=== PATIENT | female | born 1940 | race Caucasian/White ===

== ENCOUNTER 2019-11-17 22:01 | Emergency (ER) | payer OTHER, SELFPAY ==
[2019-11-17 22:12] VITALS: BP 152/82; PULSE 111; RESP 19; TEMP 36.4; O2SAT 96; BMI 39.9
[2019-11-17 23:22] VITALS: BP 107/53; PULSE 105; RESP 13; O2SAT 93
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
[2019-11-18 00:16] VITALS: BP 142/71; PULSE 103; RESP 20; O2SAT 99
[2019-11-18] MEDS: ACETAMINOPHEN 325 MG TABLET PO (00:16)
[2019-11-18] MEDS: HYDROCODONE/ACET 5/325 TABLET 1 TAB PO (00:16)
--- NOTE | 2019-11-18 00:51 | PC.NURSE ---
Pt has noticably crooked nose, able to still move air through nose. bruising appearing on inner left eye with swelling Denies visual changes.
[2019-11-18 01:39] VITALS: BP 148/82; PULSE 102; RESP 20; O2SAT 97
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
== END 2019-11-18 02:26 | disposition home or self-care (01) ==
PROVIDERS: Emergency Provider Emergency Medicine; Family Provider Internal Medicine; PCP Internal Medicine
DX: S02.2XXA Fracture of nasal bones, initial encounter for closed fracture (principal); S93.401A Sprain of unspecified ligament of right ankle, initial encounter; M54.2 Cervicalgia; Y04.2XXA Assault by strike against or bumped into by another person, initial encounter; Z79.01 Long term (current) use of anticoagulants; I48.20 Chronic atrial fibrillation, unspecified
CPT/HCPCS: 70450; 70486; 72125; 73610; 99283; 99284

== ENCOUNTER 2019-12-01 08:10 | Day surgery (SDC) | payer OTHER, SELFPAY ==
[2019-12-01] VITALS (12 sets, daily range): BP systolic 101–144; BP diastolic 73–90; PULSE 74–95; RESP 10–20; TEMP 36.1–36.7; O2SAT 92–98; BMI 38.9
--- NOTE | 2019-12-01 08:57 | PM.PREOP ---
Pre-operative Note Interval Note History & Physical reviewed/Exam performed by Physician: Yes Changes to H&P: No
[2019-12-01] MEDS: LACTATED RINGERS 1,000 ML 42 ML IV (09:21)
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
[2019-12-01] MEDS: OXYMETAZOLINE NASAL SPRAY 30 ML 2 SPRAYS NASAL (09:27)
[2019-12-01] MEDS: LIDOCAINE 4% SOLN 50 ML 20 ML TOP (10:20)
--- NOTE | 2019-12-01 10:24 | SUR.PHASEI ---
Patient coughed up large clot, oral suction done. Dr. Bear aware, Afrin applied per MD to anjali nares. Intermittent coughing improving and bleeding has slowed.
[2019-12-01] MEDS: fentaNYL 100 MCG/2 ML INJ IV ×2 (10:27→10:37)
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
--- NOTE | 2019-12-01 10:41 | SUR.PHASEI ---
IV leaking at hub. Hub tightened, IV appears to be working well.
[2019-12-01] MEDS: HYDROCODONE/ACET 5/325 TABLET 1 TAB PO (10:53)
--- NOTE | 2019-12-01 12:50 | SUR.PREOP ---
Late entry: Dr Bear asked if he wanted an INR, he did not.
== END 2019-12-01 11:54 | disposition home or self-care (01) ==
PROVIDERS: Family Provider Internal Medicine; PCP Internal Medicine; Referring Provider Otolaryngology; Visit Provider Otolaryngology
PROC: 0NSBXZZ Reposition Nasal Bone, External Approach (ICD-10-PCS; CPT 21315; principal; 2019-12-01 09:45)
DX: S02.2XXA Fracture of nasal bones, initial encounter for closed fracture (principal); Y04.0XXA Assault by unarmed brawl or fight, initial encounter; I48.91 Unspecified atrial fibrillation; G47.33 Obstructive sleep apnea (adult) (pediatric); N19 Unspecified kidney failure; F32.9 Major depressive disorder, single episode, unspecified
CPT/HCPCS: 21315; 93005; J3010

== ENCOUNTER 2020-03-26 12:55 | Emergency (ER) | payer OTHER, SELFPAY ==
[2020-03-26 13:00] VITALS: BP 117/61; PULSE 87; RESP 18; TEMP 37.1; O2SAT 95; BMI 39.9
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
[2020-03-26 13:30] VITALS: PULSE 78
--- NOTE | 2020-03-26 13:44 | ED_ITS ---
HPI - Extremity Injury (Upper) <PAMELA Cho - Last Filed: 03/26/20 14:57> General Chief Complaint: Extremity Injury, Upper Stated Complaint: fall on right shoulder, not sure if its broken Time Seen by Provider: 03/26/20 13:14 Source: patient Mode of arrival: Wheelchair Limitations: no limitations History of Present Illness HPI narrative: This is a 79-year-old female, former smoker, with chronic medical condition as AFib and takes warfarin daily presents to ED with family member with chief complaint of right anterior and lateral shoulder pain. Patient reports she fell on affected shoulder yesterday afternoon off lawn chair with all of her weight. Patient denies losing consciousness, hitting her head or other injuries. Patient reports she heard crack sounds during the fall. Patient reports intact sensation in her hand and finger. Patient is able to move all her fingers. Pain increases with movement of affected arm pain shoots down to forearm and to wrist. Patient had taken hydrocodone that she had this morning at 8:00 a.m. which helped pain slightly. Patient reports pain is 8/10 at this time. She has been using ice pack after the fall yesterday. Patient denies previous injury or surgery to right shoulder. Related Data Home Medications Medication Instructions Recorded Confirmed duloxetine 30 mg PO DAILY 12/01/19 12/01/19 duloxetine 60 mg PO DAILY 12/01/19 12/01/19 gabapentin 300 mg PO BID 12/01/19 12/01/19 hydrocodone-acetaminophen 1 tab PO BID 12/01/19 12/01/19 levothyroxine 25 mcg PO DAILY 12/01/19 12/01/19 metoprolol succinate 25 mg PO BID 12/01/19 12/01/19 warfarin 2.5 mg PO DAILY 12/01/19 12/01/19 Allergies Allergy/AdvReac Type Severity Reaction Status Date / Time No Known Drug Allergies Allergy Verified 12/01/19 10:10 Review of Systems <PAMELA Cho - Last Filed: 03/26/20 14:57> Review of Systems Narrative: General: Denies fever, chills, fatigue, malaise, sweats. HEENT: Denies sinus pain, ear pain, sore throat, difficulty swallowing, dizziness. Respiratory: Denies dyspnea, cough, wheezing, hemoptysis, sputum. Cardiovascular: Denies chest pain, palpitations, orthopnea, edema. Gastrointestinal: Denies nausea, vomiting, abdominal pain, diarrhea, constipation, melena. : Denies dysuria, frequency, incontinence, hematuria, urinary retention. Musculoskeletal: See HPI Skin: Denies rash, skin lesions, or other. Neurologic: Denies weakness, headache, numbness, change in speech, confusion, seizures, incoordination. Psychiatric: No concerning psychosocial issues. 12-point review of systems is negative except for those stated above. Patient History <PAMELA Cho - Last Filed: 03/26/20 14:57> Medical History Afib (Acute) Surgical History History of tonsillectomy (Acute) Hx of cholecystectomy (Acute) S/P appendectomy (Acute) Status post bilateral knee replacements (Acute) Social History household members: none Smoking Status: Former smoker Smoking Status: Former smoker alcohol intake frequency: a few times a week Substance Use Type: marijuana Exam <PAMELA Cho - Last Filed: 03/26/20 14:57> Narrative Exam Narrative: General appearance: well developed, well nourished, appears to be in pain and holding her right arm for support. Head: normocephalic, atraumatic, no scalp lesions, non-tender. ENT: Hearing grossly intact. Airway patent. Neck/Thyroid: neck supple, full range of motion, no visible masses or meningeal signs. No JVD, non-tender without lymphadenopathy. Skin: no suspicious rashes, lesions over visible areas. Warm and dry and appropriate color for ethnicity. Heart: no clubbing, no cyanosis, no edema. S1 and S2 normal. RRR w/o murmurs, clicks, or bruits. Lungs: Breathing even and unlabored. No stridor. No accessory muscles used. Able to speak in full sentences. Chest: normal shape and expansion. Abdomen: non-obese, non-distended. Neurologic: alert and oriented. Cognitive exam, [employer] and PNS grossly intact on informal exam. Psych: good eye contact, normal affect. Initial Vital Signs Initial Vital Signs: Vital Signs Temperature 98.7 F 03/26/20 13:00 Pulse Rate 87 03/26/20 13:00 Respiratory Rate 18 03/26/20 13:00 Blood Pressure 117/61 03/26/20 13:00 Pulse Oximetry 95 03/26/20 13:00 Extrem Right upper extremity: shoulder/upper arm Details: tenderness Location: of the A-C joint, of the scapula and over the deltoid bursa and abnormal ROM Details: held in an abnormal fashion Details: in ABduction, pain with active ROM and pain with passive ROM Details: with ABduction, with extension and with flexion; but not with internal rotation (Unable to grab the other anterior shoulder), elbow/forearm Details: normal to inspection and normal ROM; no tenderness and no swelling, wrist Details: normal to inspection and normal ROM; no tenderness, no swelling and no unusual warmth and hand Details: normal to inspection, neuromotor exam normal, neurosensory exam normal, tendon exam normal, normal ROM of fingers and no swelling; no unusual warmth <Jeremiha Guerra MD - Last Filed: 03/26/20 19:06> Initial Vital Signs Initial Vital Signs: Vital Signs Temperature 98.7 F 03/26/20 13:00 Pulse Rate 87 03/26/20 13:00 Respiratory Rate 18 03/26/20 13:00 Blood Pressure 117/61 03/26/20 13:00 Pulse Oximetry 95 03/26/20 13:00 Procedures <PAMELA Cho - Last Filed: 03/26/20 14:57> Orthopedic Splinting/Casting Injury #1: Side: right Upper Extremity Injury Location: shoulder Upper Extremity Immobilizer: sling/shoulder immobilizer Post splinting neuro exam: intact Post splinting vascular exam: intact Placed by: Nursing Scores <PAMELA Cho - Last Filed: 03/26/20 14:57> [facility] [place] coma scale eye opening: Spontaneous [place] coma scale verbal response: Orientated [place] coma scale motor response: Obey commands Gayle coma scale total score: 15 Course <PAMELA Cho - Last Filed: 03/26/20 14:57> Orders Ordered: ED Orders 03/26/20 13:20 XR shoulder RT min 2V Stat Discontinued Medications Acetaminophen (Tylenol) 325 mg PO NOW ONE Stop: 03/26/20 13:32 Last Admin: 03/26/20 14:32 Dose: 325 mg Documented by: JOSÉ Hydrocodone Bitart/Acetaminophen (Lowry 5/325) 1 tab PO NOW ONE Stop: 03/26/20 13:32 Last Admin: 03/26/20 14:32 Dose: 1 tab Documented by: JOSÉ Vital Signs Vital signs: Vital Signs - 8 hr 03/26/20 13:00 03/26/20 13:30 03/26/20 14:45 Temperature 98.7 F Pulse Rate 87 70 Pulse Rate [Right Radial] 78 Respiratory Rate 18 18 Blood Pressure 117/61 122/78 Pulse Oximetry 95 99 <Jeremiah Guerra MD - Last Filed: 03/26/20 19:06> Orders Ordered: ED Orders 03/26/20 13:20 XR shoulder RT min 2V Stat Discontinued Medications Acetaminophen (Tylenol) 325 mg PO NOW ONE Stop: 03/26/20 13:32 Last Admin: 03/26/20 14:32 Dose: 325 mg Documented by: JOSÉ Hydrocodone Bitart/Acetaminophen ([place]ry 5/325) 1 tab PO NOW ONE Stop: 03/26/20 13:32 Last Admin: 03/26/20 14:32 Dose: 1 tab Documented by: JOSÉ Vital Signs Vital signs: Vital Signs - 8 hr 03/26/20 13:00 03/26/20 13:30 03/26/20 14:45 Temperature 98.7 F Pulse Rate 87 70 Pulse Rate [Right Radial] 78 Respiratory Rate 18 18 Blood Pressure 117/61 122/78 Pulse Oximetry 95 99 MDM - Extremity Injury (Upper) <PAMELA Cho - Last Filed: 03/26/20 14:57> Differential Diagnosis Differential diagnosis: Likely dislocation of shoulder and other (Fracture shoulder, sprain/strain shoulder, humerus fracture) Medical Records Attestation: I reviewed the patient's medical records. Imaging Data XR-Shoulder RT: Radiologist's Impression: [address] [address] XRay Report Signed Patient: Mary Enriquez LMR#: [id number] : 1Acct:[id number] Age/Sex: 79 / FDate of Service: 03/26/20 Loc: ED Accession Number: [id number] Procedure: XR shoulder RT min 2V Ordering Provider: Fan Mendez PROCEDURE: XR SHOULDER RT MIN 2V INDICATIONS: pain right shoulder after fall TECHNIQUE: 3 views of the shoulder were acquired. COMPARISON: [facility], CR, RIBS UNILATERAL WITH PA CXR, 05/01/2015, 18:03. FINDINGS: Bones: No fractures or dislocations. There is mild acromioclavicular joint degeneration. No suspicious bony lesions. Visualized ribs redemonstrate multiple healed right rib fractures. Soft tissues: No suspicious soft tissue calcifications. IMPRESSION: 1. No fracture or dislocation. 2. Mild acromioclavicular joint degeneration. Dictated by: Andrea Sandoval M.D. on 03/26/2020 at 14:03 Approved by: Andrea Sandoval M.D. on 03/26/2020 at 14:05 [facility] Narrative Medical decision making narrative: This is a 79 year female who is on warfarin presents to ED with right acute shoulder pain after she sustained a fall and landed on her affected shoulder yesterday off lawn chair. Denies loss of consciousness or other injuries. Physical exam with limited passive range of motion due to pain. Patient was unable to grab the other shoulder due to pain. Patient was able to move distal fingers with intact sensation and radial pulse. No obvious deformity, joint s welling, redness, open skin noted around the affected shoulder. Shoulder x-ray does not indicate acute findings such as fractures or dislocation. Patient denied pain in elbow, forearm, wrist. She was able to flex and extend wrist. When she extend and flex her elbow patient reports pain radiating from her shoulder down to wrist otherwise there is no pain. Patient was medicated with Lowry and Tylenol in ED. advised to use ice pack for additional 24 hour period. Patient provided with a sling for immobilization and acute pain otherwise patient these gentle stretches and exercises sinus acute size. Patient advised to follow-up with primary care physician and follow-up with [facility] orthopedist as needed if healing is delayed than anticipated.. Patient states she has Lowry and lidocaine patch home that she could use. Return precautions were discussed with patient and patient verbalized understanding and in agreement with treatment plan. Discharge Plan Departure Patient Disposition: Home Clinical Impression: Contusion of left wrist Contusion of right shoulder Qualifiers: Encounter type: initial encounter Qualified Code(s): S40.011A - Contusion of right shoulder, initial encounter Discharge Date/Time: 03/26/20 14:47 Instructions: DI for Shoulder Sprain Activity Restrictions/Additional Instructions: You have been diagnosed with [right shoulder strain, sprain. X-ray test does not show acute findings such as fractures or dislocation at this time.]. What to do: *Take your medications as directed. Please take Tylenol as needed for baseline pain management. You can take 650 mg to 3 to 5 times a day. Lowry as needed up to 3 times a day that you have. Lowry can cause drowsiness and constipation so please take precautions. Lowry also has small dose of Tylenol. You can take up to 3-4000 Tylenol in 24 hour period. Please use lidocaine patch that you have at home on affected site for pain. Also you can use [id number] Voltaren gel small amount up to 2 to 3 times a day as needed for pain. Use ice pack another 24 hour. Use sling for acute pain but please ensure that you will start gentle stretch exercise as soon as acute pain subsides *Follow up with your primary care provider in 2-3 days, call for an appointment. Let them know you were seen in the ED and that we asked you to be seen in follow up. *Return to ED if you have any new, worsening, or concerning symptoms, such as [chest pain, breathing difficulty, unable to tolerate fluids, tingling/numbness/weakness on affected arm, fever or any acute concerns]. Prescriptions: No Action warfarin 2.5 mg tablet 2.5 mg PO DAILY RF: 0 hydrocodone-acetaminophen 10-325 mg tablet 1 tab PO BID RF: 0 levothyroxine 25 mcg tablet 25 mcg PO DAILY RF: 0 gabapentin 300 mg capsule 300 mg PO BID RF: 0 metoprolol succinate 25 mg tablet extended release 24 hr 25 mg PO BID RF: 0 duloxetine 30 mg capsule,delayed release(DR/EC) 30 mg PO DAILY RF: 0 duloxetine 60 mg capsule,delayed release(DR/EC) 60 mg PO DAILY RF: 0 Referrals: [facility] [Provider Group] Keshav Bryant MD [Primary Care Provider] -
[2020-03-26] MEDS: HYDROCODONE/ACET 5/325 TABLET 1 TAB PO (14:32)
[2020-03-26] MEDS: ACETAMINOPHEN 325 MG TABLET PO (14:32)
[2020-03-26 14:45] VITALS: BP 122/78; PULSE 70; RESP 18; O2SAT 99
== END 2020-03-26 14:47 | disposition home or self-care (01) ==
PROVIDERS: Emergency Provider Nurse Practitioner Family; Family Provider Internal Medicine; PCP Internal Medicine
DX: S40.011A Contusion of right shoulder, initial encounter (principal); S60.211A Contusion of right wrist, initial encounter; W07.XXXA Fall from chair, initial encounter; I48.91 Unspecified atrial fibrillation; Z79.01 Long term (current) use of anticoagulants
CPT/HCPCS: 73030; 99283

== ENCOUNTER 2021-01-19 23:29 | Observation (INO) | payer OTHER, SELFPAY ==
[2021-01-19 23:30] VITALS: BP 178/100; PULSE 125; RESP 22; TEMP 37.6; O2SAT 97; BMI 37.1
--- NOTE | 2021-01-19 23:31 | DI.RAD.S_ITS ---
PROCEDURE: XR CHEST 1V INDICATIONS: Chest pain TECHNIQUE: One view of the chest was acquired. COMPARISON: [facility], , CHEST 2 VIEW, 09/22/2014, 20:04. FINDINGS: Surgical changes and devices: Overlying EKG wires. Lungs and pleura: No focal consolidation. No pleural effusions or pneumothorax. Mediastinum: Mediastinal contours appear normal. Heart size is is along the upper limits of normal, unchanged. Bones and chest wall: No suspicious bony lesions. Overlying soft tissues appear unremarkable. IMPRESSION: No evidence of an acute cardiopulmonary abnormality. Agree with preliminary report. Dictated by: Eran Majano D.O. on 01/20/2021 at 5:45 Approved by: Eran Majano D.O. on 01/20/2021 at 5:46
--- NOTE | 2021-01-19 23:44 | ED_ITS ---
HPI - Chest Pain General Chief Complaint: Chest Pain Stated Complaint: CHEST PAIN X1 DAY Time Seen by Provider: 01/19/21 23:30 Source: patient and family Mode of arrival: Ambulatory Limitations: no limitations History of Present Illness HPI narrative: Patient is a 80-year-old female. Known history of atrial fibrill ation. Is on warfarin. Here for evaluation of chest discomfort that she stated started earlier today. Has been off and on. She has been having some shortness of breath as well. Does not feel like her heart is beating fast. She is unsure whether or not she has atrial fibrillation all the time or just sometimes. She has been taking her Coumadin on a daily basis but does admit over the past se veral weeks her Coumadin levels have been low and then have been elevated and they have made changes for dosages during this time. She has not tried anything for her symptoms prior to arrival. Related Data Home Medications Medication Instructions Recorded Confirmed duloxetine 30 mg PO DAILY 12/01/19 01/20/21 duloxetine 60 mg PO DAILY 12/01/19 01/20/21 gabapentin 300 mg PO BID 12/01/19 01/20/21 hydrocodone-acetaminophen 1 tab PO Q12H PRN 12/01/19 01/20/21 levothyroxine 25 mcg PO DAILY 12/01/19 01/20/21 metoprolol succinate 50 mg PO BID 12/01/19 01/20/21 warfarin 2.5 mg PO DAILY 12/01/19 01/20/21 atorvastatin 40 mg PO DAILY 01/19/21 01/19/21 cholecalciferol (vitamin D3) 25 mcg PO DAILY 01/19/21 01/19/21 furosemide 20 mg PO DAILY 01/19/21 01/20/21 gxaziofhlhjw-hsiroefh-fegldw 1 tab PO DAILY 01/19/21 01/20/21 tizanidine 4 mg PO BEDTIME PRN 01/19/21 01/20/21 vitamin B complex-folic acid 1 tab PO DAILY 01/19/21 01/20/21 Allergies Allergy/AdvReac Type Severity Reaction Status Date / Time No Known Drug Allergies Allergy Verified 12/01/19 10:10 Review of Systems Constitutional Constitutional: Reports fatigue, Denies fever(s) and Reports headache(s) ENT Ears, Nose, Mouth, and Throat: Reports headache(s) Cardiovascular Cardiovascular: Reports chest pain, Reports dyspnea and Reports dyspnea on exertion Respiratory Respiratory: Reports dyspnea and Reports dyspnea on exertion Gastrointestinal Gastrointestinal: Denies abdominal pain, Denies nausea and Denies vomiting Genitourinary Genitourinary: Reports system reviewed and no additional complaints, except as documented Musculoskeletal Musculoskeletal: Reports system reviewed and no additional complaints, except as documented Neurologic Neurologic: Reports system reviewed and no additional complaints, except as documented and Reports headache(s) Psychiatric Psychiatric: Reports system reviewed and no additional complaints, except as documented Endocrine Endocrine: Reports fatigue Hematologic/Lymphatic On Anticoagulants: Yes Allergic/Immunologic Allergic/Immunologic: Reports system reviewed and no additional complaints, exce pt as documented Patient History Medical History Afib Depression Hyperlipidemia Hypothyroidism (acquired) Restless leg syndrome Sleep apnea Surgical History (Updated 01/20/21 @ 01:40 by SHANKAR Bauman) History of bilateral hip arthroplasty History of open reduction and internal fixation (ORIF) procedure History of tonsillectomy Hx of cholecystectomy S/P appendectomy Status post bilateral knee replacements Family History (Updated 01/20/21 @ 01:43 by SHANKAR Bauman) Mother Cancer Leukemia Breast cancer Cataracts, bilateral Father Aortic aneurysm rupture Son Diabetes mellitus Liver cancer Social History household members: none Smoking Status: Former smoker Smoking Status: Former smoker alcohol intake frequency: a few times a week Substance Use Type: marijuana Exam Initial Vital Signs Initial Vital Signs: Vital Signs Temperature 99.6 F 01/19/21 23:30 Pulse Rate 125 H 01/19/21 23:30 Respiratory Rate 22 01/19/21 23:30 Blood Pressure 178/100 H 01/19/21 23:30 Pulse Oximetry 97 01/19/21 23:30 Const General: cooperative and comfortable Limitations: mental status not altered HENMT Head: normal to inspection and normocephalic Eyes General: appearance normal, both eyes and all related structures Chest Chest: No tenderness Resp Effort & Inspection: normal respiratory effort Auscultation: clear to auscultation bilaterally Cardio Rate: tachycardic Rhythm: abnormal rhythm Pulses: radial pulses present GI Inspection: non-distended Skin Lesions: no lesions Rashes: no rashes Neuro General: patient alert and patient awake Cognition: normal cognition Speech: speech normal Extrem General: normal to inspection and No edema Psych Appearance: grossly normal and well kempt Course Orders Ordered: ED Orders 01/19/21 23:31 XR chest 1V Stat Complete Blood Count AUTO DIFF Stat Comprehensive Metabolic Panel Stat Lipase Stat Troponin & CK Cardiac Panel Stat 01/19/21 23:42 EKG-12 Lead Stat 01/19/21 23:47 Partial Thromboplastin Time Stat Prothrombin Time INR Stat 01/20/21 01:05 COVID19 - ADMIT (SPLITTER TENDER swab/PCR) Stat Acetaminophen (Acetaminophen 325 Mg Tablet) 650 mg PO Q6HR PRN PRN Reason: Fever Docusate Sodium (Docusate 100 Mg Capsule) 100 mg PO BID JOHANN Diltiazem HCl 125 mg/ Sodium (Chloride) 125 mls @ 5 mls/hr IV TITRATE JOHANN; Protocol Last Titration: 01/20/21 01:35 Dose: 0 mg/hr, 0 mls/hr Documented by: Admin: 01/20/21 01:17 Dose: 5 mg/hr, 5 mls/hr Documented by: JOY Diltiazem HCl 125 mg/ Dextrose 125 mls @ 5 mls/hr IV TITRATE JOHANN; Protocol Last Admin: 01/20/21 01:54 Dose: 5 mg/hr, 5 mls/hr Documented by: BEE Morphine Sulfate (Morphine 2 Mg/Ml Inj) 2 mg IV Q4HR PRN PRN Reason: Chest Pain Naloxone HCl (Naloxone 0.4 Mg/Ml Vial) 0.2 mg IV Q2MIN PRN PRN Reason: Opiate Reversal Sennosides (Sennosides 8.6 Mg Tablet) 17.2 mg PO BEDTIME JOHANN Discontinued Medications Acetaminophen (Acetaminophen 325 Mg Tablet) 650 mg PO NOW ONE Stop: 01/20/21 00:52 Last Admin: 01/20/21 01:00 Dose: 650 mg Documented by: JOY Diltiazem HCl (Diltiazem 5 Mg/Ml Sdv) 10 mg IV NOW ONE Stop: 01/19/21 23:56 Last Admin: 01/20/21 00:08 Dose: 10 mg Documented by: JOY Vital Signs Vital signs: Vital Signs - 8 hr 01/19/21 23:30 01/20/21 00:08 01/20/21 00:30 Temperature 99.6 F Pulse Rate 125 H 116 H 112 H Respiratory Rate 22 25 H 12 Blood Pressure 178/100 H 139/69 152/80 H Pulse Oximetry 97 97 98 01/20/21 01:00 Temperature Pulse Rate 114 H Respiratory Rate 17 Blood Pressure 149/84 H Pulse Oximetry 97 MDM - Chest Pain Medical Records Data Attestation: I reviewed the patient's medical records. Lab Data Attestation: I reviewed the patient's lab results. Result diagrams: 01/20/21 00:10 01/20/21 00:10 Labs: Lab Results 01/20/21 01/20/21 01/20/21 Range/Units 00:10 00:10 00:10 WBC 8.5 (4.5-11.0) X10^3/uL RBC 3.58 L (4.0-5.2) X10^6/uL Hgb 11.7 L (12.0-16.0) g/dL Hct 35.7 L (36-46) % MCV 99.6 (80-100) fL MCH 32.7 (26-34) PG MCHC 32.8 (30-36) % RDW 16.6 H (11.6-14.8) % Plt Count 312 (150-400) X10^3/uL Neut % (Auto) 71.2 (50-75) % Lymph % (Auto) 15.8 L (25-40) % [place] % (Auto) 10.2 (3-14) % Eos % (Auto) 2.5 (2-4) % Baso % (Auto) 0.3 (0-2) % Neut # (Auto) 6000 (9269-4285) /uL Lymph # (Auto) 1300 (8207-0309) /uL [place] # (Auto) 900 (0-900) /uL Eos # (Auto) 200 (0-450) /uL Baso # (Auto) 0 (0-100) /uL PT 28.6 H (10.1-12.7) SECONDS INR 2.5 H (0.9-1.3) APTT 47 H (26.4-36.2) SECONDS Sodium 139 (137-145) mmol/L Potassium 4.3 (3.4-5.1) mmol/L Chloride 102 (98-107) mmol/L Carbon Dioxide 30 (22-32) mmol/L BUN 10 (7-17) mg/dL Creatinine 0.75 (0.52-1.04) mg/dL Estimated GFR > 60.0 (>60) mL/min BUN/Creatinine Ratio 13.3 (6-22) Glucose 104 (80-110) mg/dL Calcium 9.1 (8.4-10.2) mg/dL Magnesium (1.6-2.3) mg/dL Total Bilirubin 1.0 (0.2-1.3) mg/dL AST 28 (14-36) IU/L ALT 14 (<35) IU/L Alkaline Phosphatase 88 (38-126) U/L Total Creatine Kinase 59 (30-135) U/L CK-MB (CK-2) TNP CK-MB (CK-2) Rel Index TNP Troponin I < 0.012 (0.01-0.034) ng/mL Total Protein 6.9 (6.3-8.2) g/dL Albumin 3.9 (3.5-5.0) g/dL Globulin 3.0 (1.7-4.1) g/dL Albumin/Globulin Ratio 1.3 (1.0-2.8) Lipase 68 (23-300) U/L SARS-CoV-2 (PCR) (Negative) 01/20/21 01/20/21 Range/Units 00:10 01:05 WBC (4.5-11.0) X10^3/uL RBC (4.0-5.2) X10^6/uL Hgb (12.0-16.0) g/dL Hct (36-46) % MCV (80-100) fL MCH (26-34) PG MCHC (30-36) % RDW (11.6-14.8) % Plt Count (150-400) X10^3/uL Neut % (Auto) (50-75) % Lymph % (Auto) (25-40) % [place] % (Auto) (3-14) % Eos % (Auto) (2-4) % Baso % (Auto) (0-2) % Neut # (Auto) (7506-8745) /uL Lymph # (Auto) (3141-0816) /uL [place] # (Auto) (0-900) /uL Eos # (Auto) (0-450) /uL Baso # (Auto) (0-100) /uL PT (10.1-12.7) SECONDS INR (0.9-1.3) APTT (26.4-36.2) SECONDS Sodium (137-145) mmol/L Potassium (3.4-5.1) mmol/L Chloride (98-107) mmol/L Carbon Dioxide (22-32) mmol/L BUN (7-17) mg/dL Creatinine (0.52-1.04) mg/dL Estimated GFR (>60) mL/min BUN/Creatinine Ratio (6-22) Glucose (80-110) mg/dL Calcium (8.4-10.2) mg/dL Magnesium 1.9 (1.6-2.3) mg/dL Total Bilirubin (0.2-1.3) mg/dL AST (14-36) IU/L ALT (<35) IU/L Alkaline Phosphatase (38-126) U/L Total Creatine Kinase (30-135) U/L CK-MB (CK-2) CK-MB (CK-2) Rel Index Troponin I (0.01-0.034) ng/mL Total Protein (6.3-8.2) g/dL Albumin (3.5-5.0) g/dL Globulin (1.7-4.1) g/dL Albumin/Globulin Ratio (1.0-2.8) Lipase (23-300) U/L SARS-CoV-2 (PCR) Negative (Negative) Imaging Data Chest x-ray: Radiologist's Impression: Normal heart and lungs ECG Data Attestation: I personally reviewed and interpreted this ECG as follows: Prior ECG tracings: not available for review Interpretation: Atrial fibrillation Ventricular rate 1-1 Normal axis Normal QRS Some artifact noted V5 and V6 Nonspecific [address] T wave changes MDM Narrative Medical decision making narrative: Patient's chest x-ray is unremarkable. She is in atrial fibrillation on her presentation EKG with a rapid ventricular response. She does not feel her atrial fibrillation. I am unsure as to whether not she is in persistent AFib verses paroxysmal AFib. The patient did admit that there have been periods of time within the past 4 weeks where she has not been therapeutic on her Coumadin so I feel that a cardioversion in this case would not be warranted. She was given diltiazem bolus which improved her heart rate somewhat and then started on diltiazem drip. I feel given her fast heart rate and her clinical presentation that admission the hospital for rate control and also trending of her enzymes is needed. Discussed the case with ZOE Weston the [facility] provider who will admit for further evaluation and treatment. Discussed the admission with the patient she expressed understanding and agreement. Discharge Plan Departure Patient Disposition: Admitted as Observation Clinical Impression: Atrial fibrillation with RVR, Chest pain Admit Date/Time: 01/20/21 01:14 Admit Provider: Mylene Weston
[2021-01-20] VITALS (42 sets, daily range): BP systolic 79–155; BP diastolic 42–93; PULSE 83–122; RESP 11–29; TEMP 36.3–36.8; O2SAT 92–98; BMI 39.6
[2021-01-20] MEDS: dilTIAZem 5 MG/ML SDV 10 MG IV (00:08)
[2021-01-20 00:17] LABS: Add Manual Diff / Slide Review NO; Basophils Absolute Auto 0 /uL (0-100); Basophils Percent Auto 0.3 % (0-2); Eosinophils Absolute Auto 200 /uL (0-450); Eosinophils Percent Auto 2.5 % (2-4); Hematocrit 35.7 % (36-46); Hemoglobin 11.7 g/dL (12.0-16.0); Lymphocytes Absolute Auto 1300 /uL (1100-4500); Lymphocytes Percent Auto 15.8 % (25-40); Mean Corpuscular HGB Conc 32.8 % (30-36); Mean Corpuscular Hemoglobin 32.7 PG (26-34); Mean Corpuscular Volume 99.6 fL (80-100); Monocytes Absolute Auto 900 /uL (0-900); Monocytes Percent Auto 10.2 % (3-14); Neutrophils Absolute Auto 6000 /uL (1500-7000); Neutrophils Percent Auto 71.2 % (50-75); Platelet Count 312 X10^3/uL (150-400); Red Blood Cell Count 3.58 X10^6/uL (4.0-5.2); Red Cell Distribution Width 16.6 % (11.6-14.8); White Blood Cell Count 8.5 X10^3/uL (4.5-11.0)
[2021-01-20 00:24] LABS: INR 2.5 (0.9-1.3); Prothrombin Time 28.6 SECONDS (10.1-12.7)
[2021-01-20 00:27] LABS: PTT Partial Thromboplastin Tim 47 SECONDS (26.4-36.2)
[2021-01-20 00:28] LABS: Alanine Aminotransferase 14 IU/L (<35); Albumin 3.9 g/dL (3.5-5.0); Albumin Globulin Ratio 1.3 (1.0-2.8); Alkaline Phosphatase 88 U/L (38-126); Aspartate Aminotransferase 28 IU/L (14-36); BUN Creatinine Ratio 13.3 (6-22); Blood Urea Nitrogen 10 mg/dL (7-17); Calcium 9.1 mg/dL (8.4-10.2); Carbon Dioxide 30 mmol/L (22-32); Chloride 102 mmol/L (98-107); Creatine Kinase 59 U/L (30-135); Estimated Glomerular Filt Rate > 60.0 mL/min (>60); Glucose 104 mg/dL (80-110); HEMOLYSIS 21 (0-50); Lipase 68 U/L (23-300); Potassium 4.3 mmol/L (3.4-5.1); Sodium 139 mmol/L (137-145); Total Protein 6.9 g/dL (6.3-8.2)
[2021-01-20 00:40] LABS: Troponin I < 0.012 ng/mL (0.01-0.034)
[2021-01-20] MEDS: ACETAMINOPHEN 325 MG TABLET 650 MG PO (01:00)
[2021-01-20] MEDS: dilTIAZem 125 MG in SODIUM CHLORIDE 0.9% 100 ML IV (01:17)
--- NOTE | 2021-01-20 01:25 | DI.ECHO.S_ITS ---
Version: 1 Study ID: [id number] [place] [address] Name: WILIAM PUENTE Study Date: 01/20/2021, 10: 58 AM : 1940 BP: 122 / 74 mmHg Gender: Female Height: 66 in Age: 80 Years Weight: 230 lb BSA: 2.12 mA? Ordering: CAROLIN DONOVAN Referring: CAROLIN DONOVAN Clinician: José Antonio Tee Reason For Study: Atrial fibrillation History: Summary Statements Atrial fibrillation. Normal LV size. There is mild concentric left ventricular hypertrophy. Normal wall motion and left ventricular systolic function. Ejection fraction is estimated at 65-70%. Mild left atrial enlargement; otherwise normal chamber sizes. Mild mitral annular calcification. Otherwise no significant valvular abnormalities. Estimated pulmonary artery systolic pressure is 57 mmHg assuming right atrial pressure 15 mmHg. Compared to prior study performed June 07, 2019, left atrial dilation got better. It went from moderately dilated to mildly dilated. Right atrial dilation got better from moderate to normal size. PA systolic pressure however got worse and jarrett from 22 mmHg up to 57 mmHg. Procedure: A two-dimensional transthoracic echocardiogram with color flow and Doppler was performed. The study quality was technically difficult. Comparison is made with the echocardiogram of 02/10/2020. A contrast injection of Definity was performed to improve assessment of LV function. The patient was in atrial fibrillation with heart rates between 80-100 bpm during the exam. Left Ventricle: The left ventricle is normal in size. There is mild concentric left ventricular hypertrophy. Left ventricular systolic function is normal. Left ventricular ejection fraction is estimated to be 70 +/- 5%. There are no focal wall motion abnormalities. Diastolic function could not be accurately assessed due to atrial fibrillation. Right Ventricle: The right ventricle is normal in size and function. Atria: The left atrium is mildly dilated. There is no Doppler evidence for an interatrial shunt. Mitral Valve: There is mild mitral annular calcification. There is trace mitral regurgitation. Aortic Valve: The aortic valve is normal in structure and function. No aortic regurgitation is present. Tricuspid Valve: The tricuspid valve is normal in structure and function. There is trace tricuspid regurgitation. The right ventricular systolic pressure is estimated to be at least 57 mmHg based on an estimated right atrial pressure of 15 mm Hg. Pulmonic Valve: The pulmonic valve is not well seen, but is grossly normal. There is a trace or physiologic amount of pulmonic regurgitation. Great Vessels: The aortic root is normal size. The ascending aorta could not be visualized. The IVC is dilated (diameter is greater than 2.1 cm) and it collapses less than 50% with a sniff. This suggests a high right atrial pressure of 15 mm Hg. Pericardium/ Pleura: There is no pericardial effusion. There is no pleural effusion. 2D and M-Mode Measurements and Calculations LVIDd: 4.5 cm LVOT diam: 2.13 cm LVIDs: 2.6 cm Ao root diam: 2.6 cm IVSd: 1.11 cm LVPWd: 1.06 cm LV chino. diameter/BSA (cm/m^2): 2.12 LV sys. diameter/BSA (cm/m^2): 1.24 TAPSE: 1.99 cm IVC diam: 2.26 cm LA A4 area: 26.5 utility pipe layer? RA area: 20.8 utility pipe layer? LA A2 area: 22.4 utility pipe layer? RA long axis: 6.1 cm LA length (vol): 6.6 cm RA vol: 60.5 ml LA vol: 76.6 ml RA : 28.5 ml/mA? LA vol index: 36.1 ml/mA? Doppler Measurements and Calculations Ao V2 max: 119.5 cm/sec LVOT Max Tulio: 106.6 cm/sec Ao V2 mean: 91.6 cm/sec LV V1 max P.5 mmHg Ao V2 VTI: 22.8 cm LV V1 VTI: 22.5 cm Ao max P.7 mmHg Ao mean P.6 mmHg DHEERAJ(I,D): 3.5 utility pipe layer? DHEERAJ(V,D): 3.2 utility pipe layer? DHEERAJ indexed to BSA (cm^2/m^2): 1.66 sev ratio: 0.99 TR max tulio: 326.3 cm/sec TR max P.6 mmHg Electronically signed by: Urszula Zarco M.D. 01/20/2021, 4: 33 PM
--- NOTE | 2021-01-20 01:29 | P.HP_ITS ---
History of Present Illness History of Present Illness Date Patient Seen: 01/20/21 Time Patient Seen: 01:29 Chief complaint: CHEST PAIN DAY Narrative: Patient is a 80-year-old female Mary Enriquez who presented to the ED with a chief complaint of several days chest discomfort and shortness of breath. She is unsure whether or not she has atrial fibrillation all the time or just sometimes. She has been taking her Coumadin on a daily basis but does admit over the past several weeks her Coumadin levels have been low and then have been elevated and they have made changes for dosages during this time. She has not tried anything for her symptoms prior to arrival. 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 Patient has a history of atrial fibril lation with a LAY/cardioversion/echo in 2019 patient is on Coumadin, also history of hyperlipidemia, depression, hypothyroidism, sleep apnea refuses to use Cpap, and restless leg syndrome. Upon admit to the floor patient states that she continues to have mild chest tightness but it is improved from the ED. Patient denies variance or change in her chest tightness denies pain denies radiation and changes with activity. She state her shortness of breath seems slightly improved, she had a headache in the ED which had resolved but seems to be returning now. She denies any changes in vision but does complain of photophobia. Patient notes that approximately 2 weeks ago had two falls, denies hitting her head, loss of consciousness or hitting her chest. She is complaining of mild neck and back pain which are chronic baseline for her, which is exacerbated by laying in hospital bed and she did not receive an evening dose of her pain medication. She also states that she feels quite hungry since she has not eaten since 10:00 a.m. yesterday. Patient denies nausea or vomiting, weakness, new swelling of hands or feet, difficulty in swallowing, no recent injury illness or trauma, no new or changes in her medication other than the changes to her Coumadin dose. She states that she did not have these symptoms with the onset of her atrial fibrillation, or with her episodes of AFib in the past. Patient is resting in bed in no distress at this time. Patient's vitals upon admit temp 99.6?, BP 178/100, HR 125, RR 22, O2 saturation 97% on room air. Patient's labs are stable at a HGB of 11.7, HCT 35.7, PT 28.6, PTT 47, INR 2.5, 1st troponin and lipase are within normal limits. Because alycia natarajan has verbalized that her INR has been subtherapeutic within the last month she is not a candidate for cardioversion in the ED. CXR: No acute cardiopulmonary process present. EKG: I personally reviewed the EKG which showed a rate of 121 with atrial fibrillation with RVR, ST and T-wave abnormal ities, this is for the most part unchanged with comparison to EKG from 12/01/2019. Patient History Medical History Afib Depression Hyperlipidemia Hypothyroidism (acquired) Restless leg syndrome Sleep apnea Surgical History (Updated 01/20/21 @ 01:40 by SHANKAR Bauman) History of bilateral hip arthroplasty History of open reduction and internal fixation (ORIF) procedure History of tonsillectomy Hx of cholecystectomy S/P appendectomy Status post bilateral knee replacements Family & Social History Family History (Updated 01/20/21 @ 01:43 by SHANKAR Bauman) Mother Cancer Leukemia Breast cancer Cataracts, bilateral Father Aortic aneurysm rupture Son Diabetes mellitus Liver cancer Social History: household members - lives alone, retired Safety & Behavioral: Feels Safe in Current Yes Environment Been Physically Hurt or No Threatened By a Person Tobacco & Substance use: Smoking Status Former smoker times 30 years quit in 1989 alcohol intake frequency a few times a week a glass of wine Substance Use Type marijuana Meds Home Medications and Allergies Home Medications Medication Instructions Recorded Confirmed Type duloxetine 30 mg PO DAILY 12/01/19 01/20/21 History duloxetine 60 mg PO DAILY 12/01/19 01/20/21 History gabapentin 300 mg PO BID 12/01/19 01/20/21 History hydrocodone-acetaminophen 1 tab PO Q12H PRN 12/01/19 01/20/21 History levothyroxine 25 mcg PO DAILY 12/01/19 01/20/21 History metoprolol succinate 50 mg PO BID 12/01/19 01/20/21 History warfarin 2.5 mg PO DAILY 12/01/19 01/20/21 History atorvastatin 40 mg PO DAILY 01/19/21 01/19/21 History cholecalciferol (vitamin D3) 25 mcg PO DAILY 01/19/21 01/19/21 History furosemide 20 mg PO DAILY 01/19/21 01/20/21 History ghiwmmpagqox-yglxayzs-ccmovp 1 tab PO DAILY 01/19/21 01/20/21 History tizanidine 4 mg PO BEDTIME PRN 01/19/21 01/20/21 History vitamin B complex-folic acid 1 tab PO DAILY 01/19/21 01/20/21 History Allergies Allergy/AdvReac Type Severity Reaction Status Date / Time No Known Drug Allergies Allergy Verified 12/01/19 10:10 Review of Systems Review of Systems ROS: Yes All systems reviewed with the patient and are negative except as otherwise documented Constitutional Constitutional: Reports chills (Chronic not a new symptom ), Reports frequent falls and Reports headache(s) ENT Ears, Nose, Mouth, and Throat: Yes headache(s) and Yes neck pain (Chronic) Cardiovascular Cardiovascular: Reports chest pain at rest (Mild chest tightness), Reports dysp alcira and Reports orthopnea (Mild) Respiratory Respiratory: Reports dyspnea Musculoskeletal Musculoskeletal: Reports back pain (Chronic) and Reports neck pain (Chronic) Neurologic Neurologic: Reports frequent falls and Reports headache(s) Exam Vital Signs (past 8 hours): - 01/19/21 23:30 01/20/21 00:08 01/20/21 00:30 Temperature 99.6 F Pulse Rate 125 H 116 H 112 H Respiratory Rate 22 25 H 12 Blood Pressure 178/100 H 139/69 152/80 H Pulse Oximetry 97 97 98 01/20/21 01:00 Temperature Pulse Rate 114 H Respiratory Rate 17 Blood Pressure 149/84 H Pulse Oximetry 97 Oxygen Delivery Method Room Air Narrative Exam Narrative: General: Patient is a well-developed, well-nourished nu obese female in no distress at this time. HEENT: Normocephalic, atraumatic, extraocular muscles intact, oral pharynx is clear and mucous membranes are moist. Neck is supple and symmetric, trachea is midline, no adenopathy, no thyroid enlargement, nontender, no masses palpated. Negative for JVD Chest: Normal AP diameter and contour without kyphoscoliosis, no nasal flaring, retractions, or tachypneic labored Lungs: Auscultation of all lung yuen are clear without adventitious sounds, wheezes, rhonchi, or rales. Cardio: Irregular rate and rhythm. Abdomen: Soft nontender, negative for organomegaly, or masses. Bowel sounds are present in all 4 quadrants without guarding or rebound, no CVA tenderness. Musculoskeletal: Muscle strength and tone are equal within normal limits, no deformity, crepitus, effusions, cyanosis, clubbing or edema present. Full range of motion intact radial and pedal pulses are normal. Skin: Patient has yeast rash in a band like presentation under her breast and across upper abdomen & in the bilateral groin area. Neuro: Alert and orientated x3, strength is +5/5 in all extremities, sensation to touch intact, no gross deficits noted of cranial nerves. Psych: Patient has a well-kept appearance, appropriate affect, mental status attitude thought context and judgment are appropriate for age. Objective Labs Result Diagrams: 01/20/21 00:10 01/20/21 00:10 Labs: Laboratory Results - last 24 hr 01/20/21 01/20/21 01/20/21 00:10 00:10 00:10 WBC 8.5 RBC 3.58 L Hgb 11.7 L Hct 35.7 L MCV 99.6 MCH 32.7 MCHC 32.8 RDW 16.6 H Plt Count 312 Neut % (Auto) 71.2 Lymph % (Auto) 15.8 L [place] % (Auto) 10.2 Eos % (Auto) 2.5 Baso % (Auto) 0.3 Neut # (Auto) 6000 Lymph # (Auto) 1300 [place] # (Auto) 900 Eos # (Auto) 200 Baso # (Auto) 0 PT 28.6 H INR 2.5 H APTT 47 H Sodium 139 Potassium 4.3 Chloride 102 Carbon Dioxide 30 BUN 10 Creatinine 0.75 Estimated GFR > 60.0 BUN/Creatinine Ratio 13.3 Glucose 104 Calcium 9.1 Total Bilirubin 1.0 AST 28 ALT 14 Alkaline Phosphatase 88 Total Creatine Kinase 59 CK-MB (CK-2) TNP CK-MB (CK-2) Rel Index TNP Troponin I < 0.012 Total Protein 6.9 Albumin 3.9 Globulin 3.0 Albumin/Globulin Ratio 1.3 Lipase 68 Assessment & Plan Assessment & Plan narrative: This patient requires acute care inpatient hospital management for uncontrolled atrial fibrillation with RVR with a rate varying from 140-150, and elevated Blood pressure 178/100 after failing outpatient management. The patient is at much higher risk for medical and surgical complications because of her history of atrial fibrillation, hyperlipidemia, hypothyroidism, and sleep apnea. These factors increase the difficulty and complexity of medical and surgical interventions and increases the chances of poor outcomes such as morbidity and mortality. The patient's sleep apnea without use of CPAP and obesity will impact her oxygenation, which will likely exacerbate to her shortness of breath in the setting of uncontrolled atrial fibrillation. 1. Atrial fibrillation with RVR, uncontrolled as evidence by a heart rates of 140-150, acute on chronic, present on admission in the setting hyperlipidemia and sleep apnea.-stable in no distress at this time. -unknown if this is paroxysmal or persistent atrial fibrillation. The patient confirms that she had a LAY cardioversion last year(2019) with Dr. Huddleston but that after an unknown period of time at a follow-up visit with her primary care her atrial fibrillation returned. -evaluate for cardiac, pulmonary, metabolic, drugs, neurogenic, sepsis, malignancy, chronic -factors hypertension, age, cardiac disease, sleep apnea, , rheumatic heart disease -prior history of stroke, cardiac disease, COPD -Differential diagnosis PACs, atrial flutter, multifocal atrial tachycardia sinus tachycardia, sinus arrhythmia, SVT, WPW syndrome, and V-tach vitals upon admit temp 99.6?, BP 178/100, HR 125, RR 22, O2 saturation 97% on room air. Patient's labs are stable at a HGB of 11.7, HCT 35.7, PT 28.6, PTT 47, INR 2.5, 1st troponin and lipase are within normal limits. Because patient has verbalized that her INR has been subtherapeutic within the last month she is not a candidate for cardioversion in the ED. CXR: No acute cardiopulmonary process present. EKG: I personally reviewed the EKG which showed a rate of 121 with atrial fibrillation with RVR, ST and T-wave abnormalities, this is for the most part unchanged with comparison to EKG from 12/01/2019. Admit telemetry/ICU -monitor for complications stroke, heart failure, dementia -initial rate control with the hope of inducing rhythm control via medication induced cardioversion with Cardizem drip -vital signs q.2 hours x4, then decrease to q.4 hours, continuous telemetry. -activity Bed rest up with assistance only, have patient sit at edge of bed for minutes before standing. O2 via nasal cannula if O2< 93%. Diet heart healthy -fluids:LR @100cc/Hr - started Diltiazem drip in ED continue. Closely monitor blood pressure and heart rate while on Diltiazem drip. Hold drip if systolic blood pressure< 90 or heart rate is< 60. Once heart rate is maintained less than 100 begin oral Diltiazem regimen starting at 30 mg every 6 hours, taper and discontinue infusion 2 hours after 2nd oral dose. -if no other diagnosis, discharge when heart rate controlled, if discharged on Coumadin education on INR/diet and follow-up -labs BMP, CBC, trending troponins x3 q.6 hours, TSH, monitor electrolytes and supplement as indicated keep potassium> 4, magnesium> 2 Diagnostics: EKG:, chest x-ray:, echo ordered for tomorrow , ordered respiratory consult for SOB/sleep apnea -continue patient's atorvastatin, Lasix, Coumadin, and metoprolol 2. Hypothyroidism acquired, acute on chronic, not present on admission -TSH ordered, continue patient's levothyroxine 3. Depression, acute on chronic control unknown, not present on admission -continue patient's duloxetine 4. Arthritis in the setting of restless leg syndrome, acute on chronic, not present on admission Continue patient's gabapentin and tizanidine 5. Obesity as evidence by BMI of 39.7, acute on chronic, present on admission -consideration will be given to dietary counseling Code status: Full code Surrogate decisionmaker:Rossana MEJIA PCR: Negative DVT/VTE prophylaxis: Continue patient's Coumadin and SCDs Scores GCS Gayle coma scale eye opening: Spontaneous Gayle coma scale verbal response: Orientated Gayle coma scale motor response: Obey commands Lesage coma scale total score: 15 CHADS-VASc Congestive heart failure: no Hypertension: yes Age 75 years or older: yes Diabetes mellitus: no Stroke, TIA, or TE: no Vascular disease: no Age 65 to 74 years: no Sex category (female): Female CHADS-VASc Score: 4 Wells' Criteria for PE Clinical signs and symptoms of DVT: No PE is #1 Dx or equally likely: No Heart rate > 100: Yes Immobilization at least 3 days or surg in previous 4 weeks: No History of PE or DVT: No Hemoptysis: No Malignancy w/Treatment within 6 months or palliative: No Wells' PE Score total: 1.5 Quality VTE Deep Vein Thrombosis/Pulmonary Embolism Present on Admission: No MIPS - Admit I confirm the patient?s Advance Care Plan is present, Code status is documented, Surrogate decision maker is in patient?s record [If Yes, STOP here]: Yes
[2021-01-20 01:40] LABS: Magnesium 1.9 mg/dL (1.6-2.3)
[2021-01-20] MEDS: dilTIAZem 125 MG in DEXTROSE 5 % IN WATER 100 ML IV (01:54)
[2021-01-20 02:01] LABS: COVID19 - ADMIT (NP swab/PCR) Negative (Negative)
--- NOTE | 2021-01-20 02:51 | PC.NURSE ---
Pt. admitted from ER for c/o chest pain and shortness of breath. Pt. arrived to the unit via stretcher and ambulated to the bathroom to void with SBA. Pt. has a left AC IV with Diltiazem gtt infusing at 5 mg/hr. IV TKO added. Pt. placed on tele which shows afib with RVR in the 110's, B/P stable. Noted pt. to be a little bit short of air with activity, however lungs are CTA with sats in the mid 90's on RA. Oriented to room, call light use and bed controls. Instructed to call for assistance tyler. if she needs to get OOB. Pt. agreed but bed alarm activated for safety. Pictures taken on pt. right thigh bruise and yeasty rash under bilateral breast and groin areas.
[2021-01-20] MEDS: HYDROCODONE/ACET 10/325 TABLET 1 TAB PO ×2 (04:33→18:06)
[2021-01-20 05:19] LABS: INR 2.4 (0.9-1.3); Prothrombin Time 26.9 SECONDS (10.1-12.7)
[2021-01-20 05:38] LABS: Hematocrit 33.8 % (36-46); Hemoglobin 10.9 g/dL (12.0-16.0)
[2021-01-20 05:39] LABS: Troponin I < 0.012 ng/mL (0.01-0.034)
[2021-01-20 06:02] LABS: Thyroid Stimulating Hormone 3.69 uIU/mL (0.47-4.68)
[2021-01-20 06:07] LABS: BUN Creatinine Ratio 12.7 (6-22); Blood Urea Nitrogen 10 mg/dL (7-17); Calcium 9.1 mg/dL (8.4-10.2); Carbon Dioxide 30 mmol/L (22-32); Chloride 102 mmol/L (98-107); Estimated Glomerular Filt Rate > 60.0 mL/min (>60); Glucose 112 mg/dL (80-110); HEMOLYSIS < 15 (0-50); Magnesium 1.8 mg/dL (1.6-2.3); Potassium 4.1 mmol/L (3.4-5.1); Sodium 137 mmol/L (137-145)
--- NOTE | 2021-01-20 07:26 | P.PN_ITS ---
Subjective Subjective Date Patient Seen: 01/20/21 Interval history: We have continued to make changes to her diltiazem drip as her heart rate fluctuates. We have also resumed her metoprolol home dosing. At 1 point last night the diltiazem had to be stopped due to some hypotension but alfa t has resolved. An echocardiogram is pending. She tells me that she lives on [address] [facility] [address] in a travel trailer with all the hook ups, on her friend's property. 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 Her last cardioversion was in 2019. Exam Vital Signs (past 8 hours): - 01/19/21 23:30 01/20/21 00:08 01/20/21 00:30 Temperature 99.6 F Pulse Rate 125 H 116 H 112 H Respiratory Rate 22 25 H 12 Blood Pressure 178/100 H 139/69 152/80 H Pulse Oximetry 97 97 98 01/20/21 01:00 01/20/21 01:54 01/20/21 02:00 Temperature Pulse Rate 114 H 111 H 115 H Respiratory Rate 17 16 15 Blood Pressure 149/84 H 155/93 H Pulse Oximetry 97 97 96 01/20/21 02:15 01/20/21 02:30 01/20/21 02:36 Temperature Pulse Rate 117 H 109 H 108 H Respiratory Rate 19 13 12 Blood Pressure 140/72 Pulse Oximetry 96 97 96 01/20/21 02:45 01/20/21 03:00 01/20/21 03:01 Temperature Pulse Rate 115 H 112 H 109 H Respiratory Rate 21 26 H 15 Blood Pressure 142/68 H 91/42 L Pulse Oximetry 94 94 95 01/20/21 03:07 01/20/21 03:15 01/20/21 03:30 Temperature Pulse Rate 108 H 108 H 101 H Respiratory Rate 14 17 13 Blood Pressure 93/46 L Pulse Oximetry 95 94 94 01/20/21 03:31 01/20/21 03:45 01/20/21 03:54 Temperature Pulse Rate 105 H 107 H 107 H Respiratory Rate 14 14 17 Blood Pressure 91/49 L 95/46 L Pulse Oximetry 93 93 96 01/20/21 04:00 01/20/21 04:15 01/20/21 04:30 Temperature Pulse Rate 108 H 104 H 106 H Respiratory Rate 29 H 15 12 Blood Pressure 87/51 L 79/50 L Pulse Oximetry 96 95 93 01/20/21 04:32 01/20/21 04:45 01/20/21 04:50 Temperature Pulse Rate 106 H 110 H 109 H Respiratory Rate 12 21 20 Blood Pressure 125/61 Pulse Oximetry 96 97 01/20/21 05:00 01/20/21 05:01 01/20/21 05:15 Temperature Pulse Rate 102 H 109 H 118 H Respiratory Rate 14 13 14 Blood Pressure 125/58 L Pulse Oximetry 94 94 94 01/20/21 05:30 01/20/21 05:31 01/20/21 05:45 Temperature Pulse Rate 122 H 121 H 121 H Respiratory Rate 11 L 13 14 Blood Pressure 125/59 L Pulse Oximetry 94 93 92 01/20/21 05:47 01/20/21 06:00 Temperature Pulse Rate 120 H 119 H Respiratory Rate 12 16 Blood Pressure 139/63 124/58 L Pulse Oximetry 94 94 Oxygen Delivery Method Room Air Narrative Exam Narrative: She is alert and oriented x3. No apparent distress She is quite interactive and socially appropriate. Heart is irregularly tachycardic without murmur Lungs are clear to auscultation bilaterally Extremities have no ankle edema Objective Labs Result Diagrams: 01/20/21 04:48 01/20/21 04:48 Labs: Laboratory Results - last 24 hr 01/20/21 01/20/21 01/20/21 00:10 00:10 00:10 WBC 8.5 RBC 3.58 L Hgb 11.7 L Hct 35.7 L MCV 99.6 MCH 32.7 MCHC 32.8 RDW 16.6 H Plt Count 312 Neut % (Auto) 71.2 Lymph % (Auto) 15.8 L Person % (Auto) 10.2 Eos % (Auto) 2.5 Baso % (Auto) 0.3 Neut # (Auto) 6000 Lymph # (Auto) 1300 Person # (Auto) 900 Eos # (Auto) 200 Baso # (Auto) 0 PT 28.6 H INR 2.5 H APTT 47 H Sodium 139 Potassium 4.3 Chloride 102 Carbon Dioxide 30 BUN 10 Creatinine 0.75 Estimated GFR > 60.0 BUN/Creatinine Ratio 13.3 Glucose 104 Calcium 9.1 Magnesium Total Bilirubin 1.0 AST 28 ALT 14 Alkaline Phosphatase 88 Total Creatine Kinase 59 CK-MB (CK-2) TNP CK-MB (CK-2) Rel Index TNP Troponin I < 0.012 Total Protein 6.9 Albumin 3.9 Globulin 3.0 Albumin/Globulin Ratio 1.3 Lipase 68 TSH Nasal Screen MRSA (PCR) SARS-CoV-2 (PCR) 01/20/21 01/20/21 01/20/21 00:10 01:05 01:53 WBC RBC Hgb Hct MCV MCH MCHC RDW Plt Count Neut % (Auto) Lymph % (Auto) Person % (Auto) Eos % (Auto) Baso % (Auto) Neut # (Auto) Lymph # (Auto) Person # (Auto) Eos # (Auto) Baso # (Auto) PT INR APTT Sodium Potassium Chloride Carbon Dioxide BUN Creatinine Estimated GFR BUN/Creatinine Ratio Glucose Calcium Magnesium 1.9 Total Bilirubin AST ALT Alkaline Phosphatase Total Creatine Kinase CK-MB (CK-2) CK-MB (CK-2) Rel Index Troponin I Total Protein Albumin Globulin Albumin/Globulin Ratio Lipase TSH Nasal Screen MRSA (PCR) Negative for mrsa SARS-CoV-2 (PCR) Negative 01/20/21 01/20/21 01/20/21 04:48 04:48 04:48 WBC RBC Hgb Hct MCV MCH MCHC RDW Plt Count Neut % (Auto) Lymph % (Auto) Person % (Auto) Eos % (Auto) Baso % (Auto) Neut # (Auto) Lymph # (Auto) Person # (Auto) Eos # (Auto) Baso # (Auto) PT 26.9 H INR 2.4 H APTT Sodium Potassium Chloride Carbon Dioxide BUN Creatinine Estimated GFR BUN/Creatinine Ratio Glucose Calcium Magnesium Total Bilirubin AST ALT Alkaline Phosphatase Total Creatine Kinase CK-MB (CK-2) CK-MB (CK-2) Rel Index Troponin I < 0.012 Total Protein Albumin Globulin Albumin/Globulin Ratio Lipase TSH 3.69 Nasal Screen MRSA (PCR) SARS-CoV-2 (PCR) 01/20/21 01/20/21 01/20/21 04:48 04:48 04:48 WBC RBC Hgb 10.9 L Hct 33.8 L MCV MCH MCHC RDW Plt Count Neut % (Auto) Lymph % (Auto) Person % (Auto) Eos % (Auto) Baso % (Auto) Neut # (Auto) Lymph # (Auto) Person # (Auto) Eos # (Auto) Baso # (Auto) PT INR APTT Sodium 137 Potassium 4.1 Chloride 102 Carbon Dioxide 30 BUN 10 Creatinine 0.79 Estimated GFR > 60.0 BUN/Creatinine Ratio 12.7 Glucose 112 H Calcium 9.1 Magnesium 1.8 Total Bilirubin AST ALT Alkaline Phosphatase Total Creatine Kinase CK-MB (CK-2) CK-MB (CK-2) Rel Index Troponin I Total Protein Albumin Globulin Albumin/Globulin Ratio Lipase TSH Nasal Screen MRSA (PCR) SARS-CoV-2 (PCR) PFSH Medical History Afib Depression Hyperlipidemia Hypothyroidism (acquired) Restless leg syndrome Sleep apnea Surgical History (Updated 01/20/21 @ 01:40 by JANICE Bauman-) History of bilateral hip arthroplasty History of open reduction and internal fixation (ORIF) procedure History of tonsillectomy Hx of cholecystectomy S/P appendectomy Status post bilateral knee replacements Family History (Updated 01/20/21 @ 01:43 [facility] Mother Cancer Leukemia Breast cancer Cataracts, bilateral Father Aortic aneurysm rupture Son Diabetes mellitus Liver cancer Social History household members: none Smoking Status: Former smoker alcohol intake: current Assessment & Plan Assessment & Plan narrative: 1. Atrial fibrillation with RVR, uncontrolled as evidence by a heart rates of 140-150, acute on chronic -unclear if this is paroxysmal or persistent atrial fibrillation. The patient confirms that she had a LAY cardioversion last year(2019) with Dr. Mccormick but that after an unknown period of time at a follow-up visit with her primary care her atrial fibrillation returned. -evaluate for cardiac, pulmonary, metabolic, drugs, neurogenic, sepsis, malignancy, chronic -factors hypertension, age, cardiac disease, sleep apnea, , rheumatic heart disease -prior history of stroke, cardiac disease, COPD -Differential diagnosis PACs, atrial flutter, multifocal atrial tachycardia sinus tachycardia, sinus arrhythmia, SVT, WPW syndrome, and V-tach -unable to cardiovert at her presentation in the ED because of subtherapeutic INR levels. -continue ICU care with close management of her diltiazem drip with her oral metoprolol dose being restarted. She may need additional oral diltiazem? -fluids:LR @100cc/Hr -echocardiogram pending -continue patient's atorvastatin, Lasix, Coumadin, and metoprolol 2. Hypothyroidism acquired, acute on chronic, not present on admission -TSH 3.69-normal -continue patient's levothyroxine 3. Depression, acute on chronic control unknown, not present on admission -continue patient's duloxetine 4. Arthritis in the setting of restless leg syndrome, acute on chronic, not present on admission Continue patient's gabapentin and tizanidine 5. Obesity as evidence by BMI of 39.7, acute on chronic, present on admission -consideration will be given to dietary counseling 6. UTI, present on admission. Active. -UA with positive nitrates, 2+ leukocyte esterase and 10-30 WBC -no dysuria but will treat with Bactrim as a precaution. Code status: Full code Surrogate decisionmaker:Rossana MEJIA PCR: Negative DVT/VTE prophylaxis: Continue patient's Coumadin and SCDs Quality VTE Deep Vein Thrombosis/Pulmonary Embolism Present on Admission: No
[2021-01-20] MEDS: GABAPENTIN 300 MG CAPSULE PO ×2 (08:43→20:00)
[2021-01-20] MEDS: DULOXETINE 30 MG CAPSULE PO (08:44)
[2021-01-20] MEDS: DULOXETINE 30 MG CAPSULE 60 MG PO (08:44)
[2021-01-20] MEDS: ATORVASTATIN 20 MG TABLET 40 MG PO (08:44)
[2021-01-20] MEDS: NYSTATIN CREAM 30 GM 1 APPLIC TOP ×3 (08:44→20:01)
[2021-01-20] MEDS: FUROSEMIDE 20 MG TABLET PO (08:44)
[2021-01-20 10:12] LABS: RBC Urine None Seen (0-5/HPF)
[2021-01-20 10:15] LABS: Appearance Urine UA SL CLOUDY; Bilirubin Urine UA NEGATIVE (NEGATIVE); Color Urine UA YELLOW; Glucose Urine UA NEGATIVE (Negative); Ketones Urine UA NEGATIVE (NEGATIVE); Leukocyte Esterase Urine UA 2+ (NEGATIVE); Nitrite Urine UA POSITIVE (Negative); Occult Blood Urine UA TRACE-INTACT (Negative); Protein Urine UA NEGATIVE (Negative); Specific Gravity Urine UA 1.015 (1.000-1.035); Urobilinogen Urine UA 0.2 E.U./dL (0.2)
[2021-01-20 10:19] LABS: pH Urine UA 7.5 (4.5-8.0)
[2021-01-20 10:21] LABS: Bacteria Urine Many (>30); Culture Indicated Urine Specimen Cultured; Squamous Epithelial Cell Urine 1-5 /HPF (0-5/HPF); WBC Urine 10-30/HPF (0-5/HPF)
[2021-01-20] MEDS: METOPROLOL ER 25 MG TABLET 50 MG PO ×2 (10:38→20:00)
[2021-01-20] MEDS: LEVOTHYROXINE 25 MCG TABLET PO (11:51)
--- NOTE | 2021-01-20 12:31 | CM.DANOTE ---
Addendum entered by Jo Drummond LPN 01/20/21 12:41: Clarified contact info for Leni Tejada: [phone] Pt also reports daughter Gabriela/Adrianna Bautista is supportive. Original Note: Discharge Planning/Care Management DCP: assessment: case received, EMR reviewed and discussed in Team Rounds. Met then with pt and introduced self and role. Pt is a 80 year old female who admitted early this mornin to care of hospitalist team. 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 Her friend Leni will be the one to pick her up at d/c. Dr. Javier anticipates she will be here for a couple of days until medically stable for d/c. CM Discharge Assessment Start: 01/20/21 12:26 Freq: Status: Active Protocol: Document 01/20/21 12:27 ITV (Rec: 01/20/21 12:31 ITV [id number]) Discharge Planning Assessment Advance Directives? No Advance Directives on File No History Provided By Patient,Medical Record Has Patient been admitted in last 30 No days? Prior Living Arrangements RV Comment lives on property belonging to her friend Leni Floyd who resides in a house very near pt's travel trailer. She reports we watch out for each other Household Members none Type of transportation used prior to Drives own vehicle admit DME Already Rented / Owned Comment 4WW
--- NOTE | 2021-01-20 13:55 | PC.NURSE ---
Pt was given PO metoprolol per home dosing. Dilt gtt titrated to off at 1200. Pt's HR has remained 70s-90s at rest, Afib. With exertion, HR increases to 107. Pt reports improved activity tolerance and feels breathing is back to baseline. Pt has been up to chair for meals and BSC to void. Tolerating heart healthy diet. Denies pain. Call light in easy reach. Pt verbalizes understanding of fall risk and is using the call light and waiting for assistance before getting up unassisted.
[2021-01-20] MEDS: cephALEXin 250 MG CAPSULE 500 MG PO ×2 (14:35→20:00)
[2021-01-20] MEDS: DOCUSATE 100 MG CAPSULE PO (20:00)
--- NOTE | 2021-01-20 23:05 | PC.NURSE ---
Pt admitted from ED per stretcher for bradycardia, weakness. Admission assessment completed, VSS done and patient suddenly realized that her wasn't in the room and would be delayed coming up. She became very angry, stating that we were lying to her about her meds and not letting her into the room. MD spoke with the patient with same results. Eventually, came up and went in the room, pt calmed down.
[2021-01-21 00:14] VITALS: BP 120/64; PULSE 96; RESP 19; TEMP 36.4; O2SAT 96
[2021-01-21 02:53] VITALS: BP 129/76; PULSE 98; RESP 27; TEMP 36.1; O2SAT 93
[2021-01-21 04:44] LABS: INR 2.2 (0.9-1.3)
[2021-01-21 04:50] LABS: Add Manual Diff / Slide Review NO; Basophils Absolute Auto 0 /uL (0-100); Basophils Percent Auto 0.8 % (0-2); Eosinophils Absolute Auto 400 /uL (0-450); Eosinophils Percent Auto 8.4 % (2-4); Hematocrit 32.9 % (36-46); Hemoglobin 10.8 g/dL (12.0-16.0); Lymphocytes Absolute Auto 1700 /uL (1100-4500); Lymphocytes Percent Auto 32.5 % (25-40); Mean Corpuscular HGB Conc 32.8 % (30-36); Mean Corpuscular Hemoglobin 32.7 PG (26-34); Mean Corpuscular Volume 99.8 fL (80-100); Monocytes Absolute Auto 600 /uL (0-900); Monocytes Percent Auto 10.8 % (3-14); Neutrophils Absolute Auto 2500 /uL (1500-7000); Neutrophils Percent Auto 47.5 % (50-75); Platelet Count 268 X10^3/uL (150-400); Red Cell Distribution Width 16.4 % (11.6-14.8); White Blood Cell Count 5.3 X10^3/uL (4.5-11.0)
[2021-01-21 04:55] LABS: BUN Creatinine Ratio 14.6 (6-22); Blood Urea Nitrogen 13 mg/dL (7-17); Calcium 8.8 mg/dL (8.4-10.2); Carbon Dioxide 30 mmol/L (22-32); Chloride 102 mmol/L (98-107); Estimated Glomerular Filt Rate > 60.0 mL/min (>60); Glucose 96 mg/dL (80-110); HEMOLYSIS < 15 (0-50); Sodium 137 mmol/L (137-145)
[2021-01-21 07:55] VITALS: BP 122/69; PULSE 78; RESP 20; TEMP 36.6; O2SAT 96
[2021-01-21] MEDS: LEVOTHYROXINE 25 MCG TABLET PO (08:00)
[2021-01-21] MEDS: GABAPENTIN 300 MG CAPSULE PO (08:01)
[2021-01-21 08:02] VITALS: BP 122/69; PULSE 91
[2021-01-21] MEDS: METOPROLOL ER 25 MG TABLET 50 MG PO (08:02)
[2021-01-21] MEDS: cephALEXin 250 MG CAPSULE 500 MG PO (08:02)
[2021-01-21] MEDS: FUROSEMIDE 20 MG TABLET PO (08:02)
[2021-01-21] MEDS: ATORVASTATIN 20 MG TABLET 40 MG PO (08:03)
[2021-01-21] MEDS: DULOXETINE 30 MG CAPSULE PO (08:03)
[2021-01-21] MEDS: DULOXETINE 30 MG CAPSULE 60 MG PO (08:03)
[2021-01-21] MEDS: SODIUM CHLORIDE 0.9% FLUSH 10 ML IV (08:05)
[2021-01-21] MEDS: NYSTATIN CREAM 30 GM 1 APPLIC TOP (08:10)
[2021-01-21] MEDS: WARFARIN 5 MG TABLET 2.5 MG PO (08:11)
[2021-01-21 09:15] VITALS: BP 128/62; PULSE 83
--- NOTE | 2021-01-21 10:41 | PT.IIE ---
Surgical History (Last Updated 01/20/21 @ 01:40 by Mylene Weston [facility]) History of bilateral hip arthroplasty History of open reduction and internal fixation (ORIF) procedure History of tonsillectomy Hx of cholecystectomy S/P appendectomy Status post bilateral knee replacements Medical History (Last Reviewed 01/20/21 @ 04:33 by Mylene Weston [facility]) Afib Depression Hyperlipidemia Hypothyroidism (acquired) Restless leg syndrome Sleep apnea Physical Therapy Inpatient Evaluation/Re-Eval M1 PT/OT-IP Prior Functional Status Start: 01/21/21 09:21 Freq: NEEDED Status: Active Protocol: Document 01/21/21 10:41 AW (Rec: 01/21/21 11:40 AW [id number]) Medical Review Prior Functional Status Medical History Reviewed Yes Communication WNL Mobility and Gait Pt states she gets around slowly and with back pain. Her RV is set up so that she is nearly always able to hold on to something as she walks. Out of the home, she uses a 4WW. She has a new UPwalker, but has not used it yet. Pt states walkers do not fit in her RV. Activities of Daily Living and IADL's Indpendent. 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 Social History Household Members none Living Arrangements RV Number of Floors (Floors) One Floor Number of Stairs To Enter/Railing? 4 SADE with left side grab bar going up. Home Environment Standard Height Toilet,Walk in Shower Home Equipment Four Wheel Walker,Straight Cane,Shower Seat without Backrest Employment Status Retired Additional Social History Comment Pt lives in an RV which is parked on a friend's (Leni) property. She and Leni look out for one another. M2 PT-IP Current Condition Start: 01/21/21 09:21 Freq: NEEDED Status: Active Protocol: Document 01/21/21 10:41 AW (Rec: 01/21/21 11:40 AW [id number]) Physical Therapy Current Condition Current Condition Evaluation Date 01/21/21 Treatment Diagnosis a fib with RVR; difficulty in walking Onset Date 01/20/21 M3 PT-IP Subjective Start: 01/21/21 09:21 Freq: NEEDED Status: Active Protocol: Document 01/21/21 10:41 AW (Rec: 01/21/21 11:40 AW [id number]) Subjective Physical Therapy Visit Type Type Initial Evaluation Visit Start Time 10:20 Visit Stop Time 10:41 Total Visit Minutes 21 Notes Pt was placed on portable tele for mobility evaluation Physical Therapy Visit Comments Patient Comments Pt is willing to work with PT Patient Goals Pt hopes to go home with Leni providing assist. Therapy Pain Assessment Pain When Pain Assessed During Mobility Pain Present Pain Present Pain Reported Location low back Intensity 7 Scale Used Numeric (0 - 10) M4 PT-IP Mobility and Gait Start: 01/21/21 09:21 Freq: NEEDED Status: Active Protocol: Document 01/21/21 10:41 AW (Rec: 01/21/21 11:40 AW [id number]) PT-Bed Mobility Assessment Supine to Sit Supine to Sit Standby Assistance PT-Transfer Assessment Sit to and From Stand Sit to and from Stand Standby Assistance,Use of Upper Extremities Equipment Transfer Assistive Device Gait Belt,Front Wheeled Walker Orthotic/Prosthetic Devices or Brace: No Transfers Transfer Destination Chair Transfer Technique Stand Step Pivot Transfer Ability Level of Assist Standby Assistance,Use of Upper Extremities Comments Mobility Comments Pt was reclined in bed as PT arrived. BP was 115/68 HR 91. She sat up on the left side of the bed and ambulated to the toilet SBA, reaching for sink and table and doorframe along the way to steady herself. Gait was characterized by significant lateral lean in stance phase and short, halting steps. She transferred to the toilet SBA with use of grab bars for support. After voiding, pt agreed to ambulate with FWW. She walked 75 feet and completed stairs assessment before needing a standing rest break. She then returned to the room with FWW SBA and one more standing rest break. She refused the chair, stating she hoped to take a nap. She transferred back to supine SBA. Per tele monitor, pt max HR during activity was 118. She recovered to 100 as she sat down. Rate was down to 85 within two minutes. Pt was left with call light and all needs in reach. Gait Assessment Gait Gait Assistance Required: Standby Assistance Distance (Feet) 150 Able to Maintain Weight Bearing Status Yes During Gait Assistive Devices Assistive Device Gait Belt,Front Wheeled Walker Orthotic/Prosthetic Devices or Brace: No Gait Deviations General Gait Pattern Antalgic,Decreased Stride Length,Decreased Feet Clearance,Flexed Trunk,Lateral Trunk Lean Factors Limiting Gait Function Factors Limiting Gait Function Decreased Activity Tolerance, Decreased Strength,Pain,Poor Balance Comments Gait Comments See mobility comments for details. Stair Climbing Assessment Evaluation Level of Assist On Stairs Standby Assistance,Contact Guard Assistance,1 Person Assistance Devices Stair Climbing Assistive Devices Left Railing Technique/Endurance Stair Climbing Direction Ascend and Descend Stair Climbing Technique Step to Step Number of Steps Climbed 4 Query Text: Stair Climbing Set # Repetitions (reps) 1 Comments Stair Climbing Comments Pt descended safely with unilateral rail SBA. On ascent , pt needed CGA for steadiness . PT-Balance Assessment Sitting Balance and Reactions Static Sitting Balance Ability Good Dynamic Sitting Balance Ability Good Standing Balance and Reactions Static Standing Balance Ability Fair Dynamic Standing Balance Ability Fair Device Used FWW M5 PT-IP Objective Assessments Start: 01/21/21 09:21 Freq: NEEDED Status: Active Protocol: Document 01/21/21 10:41 AW (Rec: 01/21/21 11:40 AW [id number]) Orientation Orientation/Cognition Level of Alertness Alert Orientation Name,Day of Week,Place, Situation Language Function Ability No Deficits Noted Safety Awareness Understands Safety Issues Memory Description No Deficits Noted Gross Range of Motion Lower Extremity ROM Assessment Within Functional Limits Strength Lower Extremity Strength Assessment Bilaterally Impaired Hip 4-/5 Knee 4/5 Ankle 4/5 Sensation Assessment Sensation Gross Sensation WNL M6 PT-IP Treatment Start: 01/21/21 09:21 Freq: NEEDED Status: Active Protocol: Document 01/21/21 10:41 AW (Rec: 01/21/21 11:40 AW [id number]) Physical Therapy Treatment Education Education Provided Safety M7 PT-IP Assessment and Plan Start: 01/21/21 09:21 Freq: NEEDED Status: Active Protocol: Document 01/21/21 10:41 AW (Rec: 01/21/21 11:40 AW [id number]) PT Summary Assessment and Plan Potential Rehabilitation Potential Good Status of Condition at Evaluation Evolving Summary Impairments Pain,Strength,Balance, Transfers,Gait,Activity Tolerance Assessment Summary Mary is a 80 yo woman with admitting diagnosis of a fib with RVR. She is modified independent with mobility at baseline, cruising furniture in her RV and using a 4WW outside. On evaluation, pt required SBA to CGA for all mobility using FWW. She is unsteady without AD but states her RV is small enough to always be able to hold on to something. HR ranged from 85- 118 during activity. Pt will be safe to discharge home once medically cleared but would benefit from PT to improve her strength and mobility independence. Goals Bed Mobility Goal Independent Transfer Goal Independent Gait Goal Independent,Four Wheel Walker Gait Distance 150 Other Goals - pt will complete 150 feet ambulation using 4WW without rest break Days to Meet Goals 5 Frequency of Treatment Frequency Of Treatment Once a Day Treatment Plan Physical Therapy Treatment Plan Bed Mobility Training,Transfer Training,Gait Training, Therapeutic Exercise,Balance Retraining,Post Op Education, Discharge Planning,Hot or Cold Pack Other Recommendations and Next Treatment gait training with 4WW Focus Recommendations To Nursing Amount of Assist Needed Standby Assistance Discharge Recommendations PT Discharge Recommendations Home with Assistance,Home Health Transportation Needs at Discharge Private Vehicle
[2021-01-21 12:00] VITALS: BP 120/73; PULSE 97; RESP 20; TEMP 37.2; O2SAT 96
--- NOTE | 2021-01-21 13:08 | P.DS_ITS ---
History of Present Illness History of Present Illness Date Patient Seen: 01/21/21 Time Patient Seen: 09:00 Chief complaint: CHEST PAIN X1 DAY Narrative: Per Mylene Weston, BUSINESS ACCOUNT EXECUTIVE-: Patient is a 80-year-old female Mary Enriquez who presented to the ED with a chief complaint of several days chest discomfort and shortness of breath. She is unsure whether or not she has atrial fibrillation all the time or just sometimes. She has been taking her Coumadin on a daily basis but does admit over the past several weeks her Coumadin levels have been low and then have been elevated and they have made changes for dosages during this time. She has not tried anything for her symptoms prior to arrival. Patient's primary is Dr. Rinaldi & gold and silver assayer . Patient has a history of atrial fibrillation with a LAY/cardioversion/echo in 2019 patient is on Coumadin, also history of hyperlipidemia, depression, hypothyroidism, sleep apnea refuses to use Cpap, and restless leg syndrome. Upon admit to the floor patient states that she cont inues to have mild chest tightness but it is improved from the ED. Patient denies variance or change in her chest tightness denies pain denies radiation and changes with activity. She state her shortness of breath seems slightly improved, she had a headache in the ED which had resolved but seems to be returning now. She denies any changes in vision but does complain of photophobia. Patient notes that approximately 2 weeks ago had two falls, denies hitting her head, loss of consciousness or hitting her chest. She is complaining of mild neck and back pain which are chronic baseline for her, which is exacerbated by laying in hospital bed and she did not receive an evening dose of her pain medication. She also states that she feels quite hungry since she has not eaten since 10:00 a.m. yesterday. Patient denies nausea or vomiting, weakness, new swelling of hands or feet, difficulty in swallowing, no recent injury illness or trauma, no new or changes in her medication other than the changes to her Coumadin dose. She states that she did not have these symptoms with the onset of her atrial fibrillation, or with her episodes of AFib in the past. Patient is resting in bed in no distress at this time. Patient's vitals upon admit temp 99.6?, BP 178/100, HR 125, RR 22, O2 saturation 97% on room air. Patient's labs are stable at a HGB of 11.7, HCT 35.7, PT 28.6, PTT 47, INR 2.5, 1st troponin and lipase are within normal limits. Because patient has verbalized that her INR has been subtherapeutic within the last month she is not a candidate for cardioversion in the ED. CXR: No acute cardiopulmonary process present. EKG: I personally reviewed the EKG which showed a rate of 121 with atrial fibrillation with RVR, ST and T-wave abnormalities, this is for the most part unchanged with comparison to EKG from 12/01/2019. Discharge Providers Provider Date of admission: 01/20/21 01:14 Discharge Date: 01/21/21 Primary care physician: Keshav Bryant MD Consults: 01/20/21 04:27 Consult to Respiratory Therapy Evaluate & Treat Comment: Mild SOB , Sleep apnea Physician Instructions: Evaluate and treat 01/21/21 08:09 Consult to Physical Therapy Evaluate & Treat Comment: Physician Instructions: Evaluate and Treat Discharge provider: Héctor Cuenca DO Summary Hospital Course Discharge Diagnosis: 1. Paroxysmal atrial fibrillation with rapid ventricular response, RVR resolved, present on admission 2. Hypothyroidism acquired, acute on chronic, not present on admission 3. Depression, acute on chronic control unknown, not present on admission 4. Arthritis in the setting of restless leg syndrome, chronic, not present on admission 5. Obesity as evidence by BMI of 39.7, acute on chronic, present on admission 6. UTI, present on admission. Active. Hospital Course: This was a 80-year-old female admitted for atrial fibrillation with rapid ventricular response. On admission the patient had heart rates in the 140s to 150s and she was placed on diltiazem infusion. She was quickly titrated off her diltiazem infusion and was continued just on her usual dose of home beta-rinku. Her rate remained controlled after this, and she was unable to be cardioverted in the ER because of subtherapeutic INR on admission. She remained in atrial fibrillation but at a controlled rate with improved symptoms. She was seen and evaluated by Physical therapy and recommended for discharge home. She was noted to have a UTI which may have precipitated her RVR, and she should complete 3 day total course of antibiotic therapy at home with oral Keflex. I recommend the patient follow-up with her gold and silver assayer ideally in the next couple of weeks for further medication management, the very least with her primary care provider. Echocardiogram was performed which showed no acute wall motion abnormalities and a normal ejection fraction. Exam Vital Signs (past 8 hours): - 01/21/21 07:55 01/21/21 08:02 01/21/21 09:15 Temperature 97.8 F Pulse Rate 78 91 H 83 Respiratory Rate 20 Blood Pressure 122/69 122/69 128/62 Pulse Oximetry 96 Oxygen Delivery Method Room Air Oxygen Flow Rate 0 Narrative Exam Narrative: General: Patient is a well-developed, well-nourished nu obese female in no distress at this time. HEENT: Normocephalic, atraumatic, extraocular muscles intact, oral pharynx is clear and mucous membranes are moist. Neck is supple and symmetric, trachea is midline, no adenopathy, no thyroid enlargement, nontender, no masses palpated. Negative for JVD Chest: Normal AP diameter and contour without kyphoscoliosis, no nasal flaring, retractions, or tachypneic labored Lungs: Auscultation of all lung yuen are clear without adventitious sounds, wheezes, rhonchi, or rales. Cardio: Regular rate, irregularly irregular rhythm Abdomen: Soft nontender, negative for organomegaly, or masses. Bowel sounds are present in all 4 quadrants without guarding or rebound, no CVA tenderness. Musculoskeletal: Muscle strength and tone are equal within normal limits, no deformity, crepitus, effusions, cyanosis, clubbing or edema present. Full range of motion intact radial and pedal pulses are normal. Skin: Patient has yeast rash in a band like presentation under her breast and across upper abdomen & in the bilateral groin area. Neuro: Alert and orientated x3, strength is +5/5 in all extremities, sensation to touch intact, no gross deficits noted of cranial nerves. Psych: Patient has a well-kept appearance, appropriate affect, mental status attitude thought context and judgment are appropriate for age. Objective Labs Result Diagrams: 01/21/21 04:17 01/21/21 04:17 Labs: Laboratory Results - last 24 hr 01/21/21 01/21/21 01/21/21 04:17 04:17 04:17 WBC 5.3 RBC 3.30 L Hgb 10.8 L Hct 32.9 L MCV 99.8 MCH 32.7 MCHC 32.8 RDW 16.4 H Plt Count 268 Neut % (Auto) 47.5 L D Lymph % (Auto) 32.5 [place] % (Auto) 10.8 Eos % (Auto) 8.4 H Baso % (Auto) 0.8 Neut # (Auto) 2500 Lymph # (Auto) 1700 [place] # (Auto) 600 Eos # (Auto) 400 Baso # (Auto) 0 PT 25.0 H INR 2.2 H Sodium 137 Potassium 4.0 Chloride 102 Carbon Dioxide 30 BUN 13 Creatinine 0.89 Estimated GFR > 60.0 BUN/Creatinine Ratio 14.6 Glucose 96 Calcium 8.8 PFSH Medical History Afib Depression Hyperlipidemia Hypothyroidism (acquired) Restless leg syndrome Sleep apnea Surgical History (Updated 01/20/21 @ 01:40 by SHANKAR Bauman) History of bilateral hip arthroplasty History of open reduction and internal fixation (ORIF) procedure History of tonsillectomy Hx of cholecystectomy S/P appendectomy Status post bilateral knee replacements Family History (Updated 01/20/21 @ 01:43 by SHANKAR Bauman) Mother Cancer Leukemia Breast cancer Cataracts, bilateral Father Aortic aneurysm rupture Son Diabetes mellitus Liver cancer Social History household members: none Smoking Status: Former smoker alcohol intake: current Discharge Plan Discharge Plan Patient Disposition: Home Provider Discharge Comment: You were admitted to the hospital with a fast heart rate. This improved with continued dosing of your home medication. Please follow up with your PCP or gold and silver assayer for further management. You were also started on treatment for a UTI and will complete antibiotic therapy at home. Discharge orders & Medications Prescriptions: New cephalexin 500 mg tablet 500 mg PO TID 2 Days Qty: 6 RF: 0 Continued warfarin 2.5 mg tablet 2.5 mg PO DAILY RF: 0 hydrocodone-acetaminophen 10-325 mg tablet 1 tab PO Q12H PRN (Reason: Pain, Moderate) RF: 0 levothyroxine 25 mcg tablet 25 mcg PO DAILY RF: 0 gabapentin 300 mg capsule 300 mg PO BID RF: 0 metoprolol succinate 25 mg tablet extended release 24 hr 50 mg PO BID RF: 0 duloxetine 30 mg capsule,delayed release(DR/EC) 30 mg PO DAILY RF: 0 duloxetine 60 mg capsule,delayed release(DR/EC) 60 mg PO DAILY RF: 0 atorvastatin 40 mg Tablet 40 mg PO DAILY RF: 0 furosemide 20 mg Tablet 20 mg PO DAILY RF: 0 cholecalciferol (vitamin D3) 25 mcg (1,000 unit) Capsule 25 mcg PO DAILY RF: 0 ixkiorcgfzmg-kknvarmf-qkuikw Tablet 1 tab PO DAILY RF: 0 vitamin B complex-folic acid 0.4 mg Tablet 1 tab PO DAILY RF: 0 tizanidine 4 mg Capsule 4 mg PO BEDTIME PRN (Reason: Muscle Spasm) RF: 0 Follow up/Referrals: Keshav Bryant MD [Primary Care Provider] - Yandy Mccormick MD [Physician] - 02/12/21 1:00 pm (appt:02/12 @ 1:[address] snell assistant banquet manager @ [facility]-please check in 15 minutes prior to scheduled appointment time ) Diet/Activity/Treatments Diet: Diet as Tolerated Activity: As tolerated Visit Report/Discharge Packet Instructions: DI for Atrial Fibrillation, DI for Urinary Tract Infection (UTI), Cephalexin Discharge Data Primary Care Provider: Keshav Bryant Attending Provider: Mylene Weston VTE Deep Vein Thrombosis/Pulmonary Embolism Present on Admission: No
--- NOTE | 2021-01-21 14:40 | PC.NURSE ---
Pt dc'd to home per hospitalist order. Pt was given dc education and written instructions. PIV removed with cath tip intact. Pt left via w/c with all belongings in no apparent distress at 1430. Escorted by student nurse to private vehicle driven by friend.
== END 2021-01-21 14:30 | disposition home or self-care (01) ==
LOC: ED 01-20 00:51 → AC 01-20 01:16 → ICU 01-20 01:46
PROVIDERS: Family Medicine; Admitting Provider Nurse Practitioner Family; Emergency Provider Emergency Medicine; Family Provider Internal Medicine; PCP Internal Medicine; Referring Provider Emergency Medicine; Visit Provider Nurse Practitioner Family
DX: I48.0 Paroxysmal atrial fibrillation (principal); R06.02 Shortness of breath; E03.9 Hypothyroidism, unspecified; M19.90 Unspecified osteoarthritis, unspecified site; F32.9 Major depressive disorder, single episode, unspecified; N39.0 Urinary tract infection, site not specified; G25.81 Restless legs syndrome; E78.5 Hyperlipidemia, unspecified; G47.30 Sleep apnea, unspecified; E66.9 Obesity, unspecified; Z68.39 Body mass index [BMI] 39.0-39.9, adult; Z79.01 Long term (current) use of anticoagulants; Z20.822 Contact with and (suspected) exposure to COVID-19
CPT/HCPCS: 36415; 71045; 80048; 80053; 81001; 82550; 83690; 83735; 84443; 84484; 85014; 85018; 85025; 85610; 85730; 87077; 87086; 87186; 87635; 87797; 93005; 93010; 96365; 96366; 96375; 97162; 99284; C9803; G0378; C8929; Q9957

== ENCOUNTER 2021-03-28 16:12 | Emergency (ER) | payer OTHER, SELFPAY ==
[2021-01-20 03:19] VITALS: BMI 39.6
[2021-03-28 16:22] VITALS: BP 127/79; PULSE 86; RESP 20; TEMP 36.2; O2SAT 97; BMI 40.3
--- NOTE | 2021-03-28 16:31 | DI.RAD.S_ITS ---
PROCEDURE: XR SHOULDER RT MIN 2V INDICATIONS: fell TECHNIQUE: 3 views of the shoulder were acquired. COMPARISON: [facility], CR, XR SHOULDER RT MIN 2V, 03/26/2020, 13:22. FINDINGS: Bones: No acute fractures or dislocations. No suspicious bony lesions. Visualized ribs appear intact. Moderate degenerative changes are seen in the acromioclavicular joint. Degenerative changes in the spine are partially imaged. Soft tissues: No suspicious soft tissue calcifications. IMPRESSION: No acute osseous abnormality. If clinical suspicion and/or symptoms persist, additional imaging with repeat plain films, or advanced imaging (e.g. CT, MRI) may be helpful for further assessment. Dictated by: Farhat Guillen M.D. on 03/28/2021 at 16:01 Approved by: Farhat Guillen M.D. on 03/28/2021 at 16:02
--- NOTE | 2021-03-28 16:34 | DI.CT.S_ITS ---
PROCEDURE: CT HEAD/BRAIN WO CON INDICATIONS: fall, on blood thinners TECHNIQUE: Noncontrast 4.5 mm thick angled axial sections acquired from the foramen magnum to the vertex, with coronal and sagittal reformats. For radiation dose reduction, the following was used: automated exposure control, adjustment of mA and/or kV according to patient size. COMPARISON: [facility], CT, CT HEAD/BRAIN WO CON, 11/17/2019, 23:42. FINDINGS: Image quality: Excellent. CSF spaces: Basal cisterns are patent. No extra-axial fluid collections. The ventricles are symmetric in size and shape. Brain: No intracranial bleeds or masses. There is cerebral volume loss for age, with resultant ventricular and sulcal prominence. There are periventricular and deep white matter chronic small vessel ischemic changes. There is intracranial internal carotid artery atherosclerosis. Skull and face: Calvarium and visualized facial bones appear intact, without suspicious lesions. Sinuses: Visualized sinuses and mastoids are clear. IMPRESSION: 1. No acute intracranial abnormalities. No intracranial bleed. 2. Cerebral volume loss and chronic microvascular ischemic changes. Dictated by: Roseline Hernández M.D. on 03/28/2021 at 16:53 Approved by: Roseline Hernández M.D. on 03/28/2021 at 16:55
--- NOTE | 2021-03-28 20:06 | ED.FALL ---
HPI - Fall General Chief Complaint: Fall Stated Complaint: Hurt Right Arm,Pain,Fall,Blood Thinners, No [place] Time Seen by Provider: 03/28/21 19:53 Source: patient Mode of arrival: Ambulatory History of Present Illness HPI Narrative: Patient is a 80-year-old female. Is on warfarin. Does have quite a bit of balance issues at baseline states that she was leaving her doctor's office earlier today. As she was trying to maneuver around the elevator and pushing the elevator button she lost her balance and fell over. She did hit her head. There was no loss of consciousness. She also has pain on the outside of her right arm. She has no neck pain. She reports no other injuries from the event. Related Data Home Medications Medication Instructions Recorded Confirmed duloxetine 30 mg capsule,delayed 30 mg PO DAILY 12/01/19 01/20/21 release duloxetine 60 mg capsule,delayed 60 mg PO DAILY 12/01/19 01/20/21 release gabapentin 300 mg capsule 300 mg PO BID 12/01/19 01/20/21 hydrocodone 10 mg-acetaminophen 1 tab PO Q12H PRN 12/01/19 01/20/21 325 mg tablet levothyroxine 25 mcg tablet 25 mcg PO DAILY 12/01/19 01/20/21 metoprolol succinate 25 mg 50 mg PO BID 12/01/19 01/20/21 tablet,extended release 24 hr warfarin 2.5 mg tablet 2.5 mg PO DAILY 12/01/19 01/20/21 atorvastatin 40 mg tablet 40 mg PO DAILY 01/19/21 01/19/21 cholecalciferol (vitamin D3) 25 25 mcg PO DAILY 01/19/21 01/19/21 mcg (1,000 unit) capsule furosemide 20 mg tablet 20 mg PO DAILY 01/19/21 01/20/21 fkpfikapzldn-bmbopajy-hxbsyf tablet 1 tab PO DAILY 01/19/21 01/20/21 tizanidine 4 mg capsule 4 mg PO BEDTIME PRN 01/19/21 01/20/21 vitamin B complex-folic acid 0.4 1 tab PO DAILY 01/19/21 01/20/21 mg tablet Allergies Allergy/AdvReac Type Severity Reaction Status Date / Time No Known Drug Allergies Allergy Verified 12/01/19 10:10 Review of Systems Constitutional Constitutional: Denies fever(s) Eyes Eyes: Reports system reviewed and no additional complaints, except as documented Cardiovascular Cardiovascular: Reports system reviewed and no additional complaints, except as documented Respiratory Respiratory: Reports system reviewed and no additional complaints, except as documented Gastrointestinal Gastrointestinal: Reports system reviewed and no additional complaints, except as documented Musculoskeletal Musculoskeletal: Reports as per HPI Integumentary/Breasts Skin/Breast: Reports system reviewed and no additional complaints, except as documented Neurologic Neurologic: Reports system reviewed and no additional complaints, except as documented Psychiatric Psychiatric: Reports system reviewed and no additional complaints, except as documented Hematologic/Lymphatic On Anticoagulants: Yes Allergic/Immunologic Allergic/Immunologic: Reports system reviewed and no additional complaints, except as documented Patient History Medical History Afib Depression Hyperlipidemia Hypothyroidism (acquired) Restless leg syndrome Sleep apnea Surgical History (Updated 01/20/21 @ 01:40 by SHANKAR Bauman) History of bilateral hip arthroplasty History of open reduction and internal fixation (ORIF) procedure History of tonsillectomy Hx of cholecystectomy S/P appendectomy Status post bilateral knee replacements Family History (Updated 01/20/21 @ 01:43 by SHANKAR Bauman) Mother Cancer Leukemia Breast cancer Cataracts, bilateral Father Aortic aneurysm rupture Son Diabetes mellitus Liver cancer Social History household members: none Smoking Status: Former smoker alcohol intake: current Smoking Status: Former smoker alcohol intake frequency: a few times a week Substance Use Type: marijuana Exam Initial Vital Signs Initial Vital Signs: Vital Signs Temperature 97.1 F L 03/28/21 16:22 Pulse Rate 86 03/28/21 16:22 Respiratory Rate 20 03/28/21 16:22 Blood Pressure 127/79 03/28/21 16:22 Pulse Oximetry 97 03/28/21 16:22 Const General: cooperative and healthy appearing HENFL Head: normal to inspection Eyes General: appearance normal, both eyes and all related structures Chest Chest: normal inspection of the chest Resp Effort & Inspection: normal respiratory effort Cardio Rate: regular rate Back/Spine/Pelvis Cervical Spine: No cervical spinal tenderness Skin General: no rashes or lesions noted Neuro General: patient alert, patient awake and moves all extremities Extrem General: capillary refill normal Other: Does report discomfort over the insertion of the deltoid of the right proximal humerus. Her right elbow and right wrist unremarkable. Pelvis is stable. Left upper extremity is unremarkable. Bilateral lower extremities unremarkable. Psych Appearance: grossly normal and well kempt Scores [facility] [place] coma scale eye opening: Spontaneous [place]le coma scale verbal response: Orientated Gayle coma scale motor response: Obey commands Gayle coma scale total score: 15 Nexus Score for C-Spine Focal Neurologic deficit present: No Midline spinal tenderness present: No Altered level of conciousness present: No Intoxication present: No Distracting Injury Present: No Nexus Criteria for C-spine: 0 Course Orders Ordered: ED Orders 03/28/21 16:31 XR shoulder RT min 2V Stat 03/28/21 16:34 CT head/brain wo con Stat Vital Signs Vital signs: Vital Signs - 8 hr 03/28/21 20:20 Pulse Rate 78 Respiratory Rate 17 Blood Pressure 120/59 L Pulse Oximetry 96 MDM - Fall Imaging Data Extremity x-ray #1: Radiologist's Impression: [address] [id number] ReportSigned Patient: Mary Enriquez LMR#: [id number]: [id number]/Sex: 80 / FDate of Service: 03/28/21Loc: EDAccession Number: [id number] Procedure: XR shoulder RT min 2V Ordering Provider: Jessica Jimenez MD PROCEDURE: XR SHOULDER RT MIN 2V INDICATIONS: fell TECHNIQUE: 3 views of the shoulder were acquired. COMPARISON: [facility], , XR SHOULDER RT MIN 2V, 03/26/2020, 13:22. FINDINGS: Bones: No acute fractures or dislocations. No suspicious bony lesions. Visualized ribs appear intact. Moderate degenerative changes are seen in the acromioclavicular joint. Degenerative changes in the spine are partially imaged. Soft tissues: No suspicious soft tissue calcifications. IMPRESSION: No acute osseous abnormality. If clinical suspicion and/or symptoms persist, additional imaging with repeat plain films, or advanced imaging (e.g. CT, MRI) may be helpful for further assessment. Dictated by: Farhat Guillen M.D. on 03/28/2021 at 16:01 Approved by: Farhat Guillen M.D. on 03/28/2021 at 16:02 CT scan - head: Radiologist's Impression: [facility] [place] [id number] Scan ReportSigned Patient: Mary Enriquez LMR#: [id number]: [id number]/Sex: 80 / FDate of Service: 03/28/21Loc: EDAccession Number: [id number] Procedure: CT head/brain wo con Ordering Provider: Jessica Jimenez MD PROCEDURE: CT HEAD/BRAIN WO CON INDICATIONS: fall, on blood thinners TECHNIQUE: Noncontrast 4.5 mm thick angled axial sections acquired from the foramen magnum to the vertex, with coronal and sagittal reformats. For radiation dose reduction, the following was used: automated exposure control, adjustment of mA and/or kV according to patient size. COMPARISON: [facility], CT, CT HEAD/BRAIN WO CON, 11/17/2019, 23:42. FINDINGS: Image quality: Excellent. CSF spaces: Basal cisterns are patent. No extra-axial fluid collections. The ventricles are symmetric in size and shape. Brain: No intracranial bleeds or masses. There is cerebral volume loss for age, with resultant ventricular and sulcal prominence. There are periventricular and deep white matter chronic small vessel ischemic changes. There is intracranial internal carotid artery atherosclerosis. Skull and face: Calvarium and visualized facial bones appear intact, without suspicious lesions. Sinuses: Visualized sinuses and mastoids are clear. IMPRESSION: 1. No acute intracranial abnormalities. No intracranial bleed. 2. Cerebral volume loss and chronic microvascular ischemic changes. Dictated by: Roseline Hernández M.D. on 03/28/2021 at 16:53 Approved by: Roseline Hernández M.D. on 03/28/2021 at 16:55 [facility] Narrative Medical decision making narrative: Head CT and x-rays are unremarkable. She reports no other injuries from the event and no other injuries were found. This does appear to be a fall when she lost her balance. Low suspicion ACS or CVA was seizure given her presentation. Feel we can hold on further workup for now. She was given care instructions with regard to her right upper extremity. She was given return precautions and follow-up instructions. She expressed understanding and agreement. Discharge Plan Departure Patient Disposition: Home Clinical Impression: Contusion of right shoulder Instructions: How To Perform RICE (Rest, Ice, Compress, Elevate), How to Prevent Falls Activity Restrictions/Additional Instructions: The CT scan in the x-rays do not show any signs of fractures or bleeding or dislocation. You can continue to take all of your medications as directed. Contact your primary provider for follow-up. Return to the emergency department for any new or worsening symptoms Prescriptions: No Action warfarin 2.5 mg tablet 2.5 mg PO DAILY RF: 0 hydrocodone-acetaminophen 10-325 mg tablet 1 tab PO Q12H PRN (Reason: Pain, Moderate) RF: 0 levothyroxine 25 mcg tablet 25 mcg PO DAILY RF: 0 gabapentin 300 mg capsule 300 mg PO BID RF: 0 metoprolol succinate 25 mg tablet extended release 24 hr 50 mg PO BID RF: 0 duloxetine 30 mg capsule,delayed release(DR/EC) 30 mg PO DAILY RF: 0 duloxetine 60 mg capsule,delayed release(DR/EC) 60 mg PO DAILY RF: 0 atorvastatin 40 mg Tablet 40 mg PO DAILY RF: 0 furosemide 20 mg Tablet 20 mg PO DAILY RF: 0 cholecalciferol (vitamin D3) 25 mcg (1,000 unit) Capsule 25 mcg PO DAILY RF: 0 uzlzrbkmkdsc-jfemqwzr-jqvamq Tablet 1 tab PO DAILY RF: 0 vitamin B complex-folic acid 0.4 mg Tablet 1 tab PO DAILY RF: 0 tizanidine 4 mg Capsule 4 mg PO BEDTIME PRN (Reason: Muscle Spasm) RF: 0 Referrals: Keshav Bryant MD [Primary Care Provider] -
[2021-03-28 20:20] VITALS: BP 120/59; PULSE 78; RESP 17; O2SAT 96
== END 2021-03-28 20:20 | disposition home or self-care (01) ==
PROVIDERS: Emergency Provider Emergency Medicine; Family Provider Internal Medicine; PCP Internal Medicine
DX: S40.011A Contusion of right shoulder, initial encounter (principal); M79.601 Pain in right arm; S09.90XA Unspecified injury of head, initial encounter; Z79.01 Long term (current) use of anticoagulants; W19.XXXA Unspecified fall, initial encounter
CPT/HCPCS: 70450; 73030; 99281; 99284

== ENCOUNTER → 2021-04-03 12:03 | Outpatient (CLI) | payer OTHER, SELFPAY ==
[2021-01-20 03:19] VITALS: BMI 39.6
[2021-04-03 14:59] LABS: COVID19 -Nasal RAPID Negative (Negative)
== END ==
PROVIDERS: Family Provider Internal Medicine; PCP Internal Medicine; Visit Provider Physician Assistant
DX: Z01.812 Encounter for preprocedural laboratory examination (principal); Z20.822 Contact with and (suspected) exposure to COVID-19
CPT/HCPCS: 87635

== ENCOUNTER 2021-11-10 14:10 | Emergency (ER) | payer OTHER, SELFPAY ==
[2021-01-20 03:19] VITALS: BMI 39.6
[2021-11-10] VITALS (14 sets, daily range): BP systolic 103–162; BP diastolic 50–93; PULSE 71–84; RESP 14–22; TEMP 36.6; O2SAT 92–99
--- NOTE | 2021-11-10 14:22 | DI.CT.S_ITS ---
PROCEDURE: CT CERVICAL SPINE WO CON INDICATIONS: trauma TECHNIQUE: Noncontrast 3 mm thick sections acquired from the skull base to the T4 level. Sagittal and coronal reformats were then constructed. For radiation dose reduction, the following was used: automated exposure control, adjustment of mA and/or kV according to patient size. COMPARISON: [facility], CT, CT CERVICAL SPINE WO CON, 11/17/2019, 23:42. FINDINGS: Image quality: Excellent. Bones: No fractures or dislocations. Visualized superior ribs are intact. Severe cervical spondylitic change. Multilevel facet arthropathy. Mild degenerative anterolisthesis of C4 on C5. Multilevel uncovertebral joint osteophytes, spanning from C4-C5 through C6-C7 results in multilevel bony foraminal narrowing. Soft tissues: Prevertebral soft tissues are normal in thickness. No paravertebral hematomas. No apical pneumothoraces. There is a severe calcified left carotid bifurcations stenosis, in which the calcified plaque likely results in a stenosis of 70% or greater. IMPRESSION: 1. No evidence of acute cervical fracture or dislocation. 2. Severe cervical spondylitic change with multilevel bony foraminal narrowing. 3. Incidental note made of severe calcified left carotid bifurcation region stenosis. Dictated by: Julio Dyer M.D. on 11/10/2021 at 14:05 Approved by: Julio Dyer M.D. on 11/10/2021 at 14:11
--- NOTE | 2021-11-10 14:22 | DI.CT.S_ITS ---
PROCEDURE: CT FACIAL BONES WO CON INDICATIONS: trauma TECHNIQUE: Noncontrast 2.5 mm thick axial images acquired from the mandible through the frontal sinuses, with coronal and sagittal reformatting. For radiation dose reduction, the following was used: automated exposure control, adjustment of mA and/or kV according to patient size. COMPARISON: [facility], CT, CT FACIAL BONES WO CON, 11/17/2019, 23:42. FINDINGS: Image quality: Excellent. Bones and teeth: Orbital raymundo are intact. Sinus raymundo show no fracture or deformity. Chronic nasal bone fracture, unchanged from the previous study. No nasal septal fracture. No mandibular fractures or subluxation. Poor dentition. No upper teeth. Multiple lower broken teeth and periapical lucencies. Zygomatic arches are intact. Pterygoid plates are intact. Visualized portions of the skull base and auditory canals are intact. Sinuses: Paranasal sinuses are aerated, without fluid levels, mucosal thickening, or mucoceles. Mastoid air cells are aerated. Soft tissues: No edema, masses, or fluid collections. No enlarged lymph nodes. No soft tissue lacerations or debris. 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 There is also a calcified proximal right internal carotid artery stenosis, which is less than 50% by calcification. Vascular: Visualized vascular structures appear normal in the absence of contrast. Bony vascular foramina and canals are intact. IMPRESSION: 1. The patient has a chronic nasal bone fracture. 2. No evidence of acute displaced facial bone fracture or mandibular fracture. 3. Significant ASCVD, with a greater than 70% calcified left carotid bifurcation stenosis. There is also a right proximal internal carotid artery stenosis. Dictated by: Julio Dyer M.D. on 11/10/2021 at 14:25 Approved by: Julio Dyer M.D. on 11/10/2021 at 14:29
--- NOTE | 2021-11-10 14:22 | DI.CT.S_ITS ---
PROCEDURE: CT HEAD/BRAIN WO CON INDICATIONS: trauma TECHNIQUE: Noncontrast 4.5 mm thick angled axial sections acquired from the foramen magnum to the vertex, with coronal and sagittal reformats. For radiation dose reduction, the following was used: automated exposure control, adjustment of mA and/or kV according to patient size. COMPARISON: [facility], CT, CT HEAD/BRAIN WO CON, 03/28/2021, 16:37. FINDINGS: Image quality: Excellent. CSF spaces: Basal cisterns are patent. No extra-axial fluid collections. The ventricles are symmetric in size and shape. Brain: No intracranial bleeds or masses. There is cerebral volume loss for age, with resultant ventricular and sulcal prominence. There are moderate periventricular and deep white matter chronic small vessel ischemic changes. There is intracranial internal carotid artery atherosclerosis. Skull and face: Calvarium and visualized facial bones appear intact, without suspicious lesions. Chronic nasal bone deformity from remote fracture. Sinuses: Visualized sinuses and mastoids are clear. IMPRESSION: 1. No evidence of acute intracranial process. No evidence of significant intracranial sequelae of acute trauma. 2. Age-related volume loss and moderate small vessel ischemic change. 3. Chronic deformity of the nasal bone from remote fracture. Dictated by: Julio Dyer M.D. on 11/10/2021 at 14:30 Approved by: Julio Dyer M.D. on 11/10/2021 at 14:31
[2021-11-10] MEDS: ONDANSETRON 4 MG ODT SL (14:34)
[2021-11-10 14:55] LABS: Add Manual Diff / Slide Review NO; Basophils Absolute Auto 0 /uL (0-100); Basophils Percent Auto 0.3 % (0-2); Eosinophils Absolute Auto 100 /uL (0-450); Hematocrit 40.8 % (36-46); Hemoglobin 13.5 g/dL (12.0-16.0); Lymphocytes Absolute Auto 700 /uL (1100-4500); Lymphocytes Percent Auto 5.5 % (25-40); Mean Corpuscular HGB Conc 33.1 % (30-36); Mean Corpuscular Volume 96.6 fL (80-100); Monocytes Absolute Auto 700 /uL (0-900); Monocytes Percent Auto 5.4 % (3-14); Neutrophils Absolute Auto 11200 /uL (1500-7000); Neutrophils Percent Auto 87.8 % (50-75); Platelet Count 276 X10^3/uL (150-400); Red Blood Cell Count 4.23 X10^6/uL (4.0-5.2); Red Cell Distribution Width 13.7 % (11.6-14.8); White Blood Cell Count 12.8 X10^3/uL (4.5-11.0)
[2021-11-10 14:59] LABS: INR 1.4 (0.9-1.3); Prothrombin Time 15.4 SECONDS (10.1-12.7)
--- NOTE | 2021-11-10 15:07 | PC.NURSE ---
Patient experienced a fall, striking her mouth on a marble countertop. Was not able to brake her fall. Patient is on anticoagulant for Afib. Bleeding controlled at this time. Her upper denture broke in half during the fall. One of her lower teeth (Potentially right lower canine) accompanied broken denture. Daughter brought broken tooth and denture into ED. Patient has laceration above top lip, below the nose as well as inside the upper lip.
[2021-11-10 15:18] LABS: PTT Partial Thromboplastin Tim 72 SECONDS (26.4-36.2)
[2021-11-10 15:19] LABS: BUN Creatinine Ratio 12.7 (6-22); Blood Urea Nitrogen 14 mg/dL (7-17); Calcium 9.5 mg/dL (8.4-10.2); Carbon Dioxide 30 mmol/L (22-32); Chloride 99 mmol/L (98-107); Estimated Glomerular Filt Rate 47.8 mL/min (>60); Glucose 104 mg/dL (80-110); HEMOLYSIS 28 (0-50); Potassium 4.6 mmol/L (3.4-5.1); Sodium 138 mmol/L (137-145)
[2021-11-10] MEDS: MORPHINE 4 MG/ML INJ IV ×2 (15:26→18:30)
--- NOTE | 2021-11-10 15:52 | ED_ITS ---
HPI - Fall General Chief Complaint: Trauma Stated Complaint: Fall landed on face Time Seen by Provider: 11/10/21 14:42 Source: patient and family Mode of arrival: Wheelchair Limitations: no limitations History of Present Illness HPI Narrative: This is an 81-year-old female comes emergency department after having a fall. Patient tripped on an uneven surface on the floor and a kitchen and fell face 1st into the edge of a counter top. Patient has laceration of the lip, she broke her dentures and injury to tooth. Patient denies any loss of consciousness. She states her mouth and lips hurt. Patient states she had a headache immediately but has improved. She has pain in her mouth. She denies any cervical tenderness. She denies any chest pain or shortness of breath. No nausea or vomiting no dizziness. She was stood and walked immediately afterwards. She denies any neck or back pain. No numbness, tingling or weakness. No new GI or urinary symptoms. Patient does take Pradaxa daily. She takes this for atrial fibrillation she states she has been cardioverted should be in a normal rhythm. She takes medication for hypertension, dyslipidemia and cardiac meds. She denies any drug allergies. Patient believes her tetanus is up-to-date. Patient's primary care is Dr. Bryant but she is switching providers to a different physician in [place]. Related Data Home Medications Medication Instructions Recorded Confirmed duloxetine 30 mg capsule,delayed 30 mg PO DAILY 12/01/19 01/20/21 release duloxetine 60 mg capsule,delayed 60 mg PO DAILY 12/01/19 01/20/21 release gabapentin 300 mg capsule 300 mg PO BID 12/01/19 01/20/21 hydrocodone 10 mg-acetaminophen 1 tab PO Q12H PRN 12/01/19 01/20/21 325 mg tablet levothyroxine 25 mcg tablet 25 mcg PO DAILY 12/01/19 01/20/21 metoprolol succinate 25 mg 50 mg PO BID 12/01/19 01/20/21 tablet,extended release 24 hr warfarin 2.5 mg tablet 2.5 mg PO DAILY 12/01/19 01/20/21 atorvastatin 40 mg tablet 40 mg PO DAILY 01/19/21 01/19/21 cholecalciferol (vitamin D3) 25 25 mcg PO DAILY 01/19/21 01/19/21 mcg (1,000 unit) capsule furosemide 20 mg tablet 20 mg PO DAILY 01/19/21 01/20/21 nesjbvfelmoo-ymlzkreq-ojyale tablet 1 tab PO DAILY 01/19/21 01/20/21 tizanidine 4 mg capsule 4 mg PO BEDTIME PRN 01/19/21 01/20/21 vitamin B complex-folic acid 0.4 1 tab PO DAILY 01/19/21 01/20/21 mg tablet Previous Rx's Medication Instructions Recorded oxycodone 5 mg tablet 5 mg PO Q6H PRN #14 tab 11/10/21 Allergies Allergy/AdvReac Type Severity Reaction Status Date / Time No Known Drug Allergies Allergy Verified 12/01/19 10:10 Review of Systems Review of Systems ROS Unobtainable: All systems reviewed & are unremarkable except as noted in HPI and below Patient History Medical History Afib Depression Hyperlipidemia Hypothyroidism (acquired) Restless leg syndrome Sleep apnea Surgical History History of bilateral hip arthroplasty History of open reduction and internal fixation (ORIF) procedure History of tonsillectomy Hx of cholecystectomy S/P appendectomy Status post bilateral knee replacements Family History Mother Cancer Leukemia Breast cancer Cataracts, bilateral Father Aortic aneurysm rupture Son Diabetes mellitus Liver cancer Social History household members: none Smoking Status: Former smoker alcohol intake: current Smoking Status: Former smoker alcohol intake frequency: a few times a week Substance Use Type: marijuana Exam Narrative Exam Narrative: GEN: Patient appears in mild distress. HEAD: No evidence of trauma, no raccoon/Barraza sign. NECK: Nontender, painless range of motion, trachea midline Negative Nexus criteria, there is no mid-level line tenderness, distracting injury, altered mental status, neuro deficit, recent EtOH. EYES: PERRLA, EOMI ENT: Patient has a have 3.5 cm laceration of the upper lip superior to the vermilion border that appears through and through. She has 2 small punctate lacerations of the lower chin on the right. These do not gape in any way but do ooze. Patient has upper dentures are at bedside had broken in half. She has intraoral lip laceration of the upper lip that is approximately 2 cm, trachea is midline, TM's are normal no hemotypanum, Nares are clear, no septal hematoma, no dental or oral injury, airway is normal and with normal occlusion, No bony tenderness. RESP: Chest is nontender and has symmetric movement, no ecchymosis, breath sounds are normal no crackles, wheezes or rales CVS: Heart sounds are normal, no murmur noted, No JVD. ABG/GI: Nontender, soft, normal bowel sounds, no distention, no organomegaly, pelvic rock is negative NEURO: Oriented AOx3, neuro is grossly intact, sensation and motor is normal all 4 extremities moving, cranial nerves II through XII are intact, GCS is 15 PSYCH: Normal mood and affect SKIN: Intact, warm and dry, no crepitus and without decubitus BACK: No CVA tenderness, no vertebral tenderness, no step-off's, no crepitus EXT: Atraumatic, hips are nontender, no pedal edema, normal color and temperature, normal range of motion of extremities with normal tendon exam, 2+ pulses in all four extremities Initial Vital Signs Initial Vital Signs: Vital Signs Temperature 97.9 F 11/10/21 14:15 Pulse Rate 83 11/10/21 14:15 Respiratory Rate 22 11/10/21 14:15 Blood Pressure 125/63 11/10/21 14:15 Pulse Oximetry 99 11/10/21 14:15 Scores GCS Gayle coma scale eye opening: Spontaneous [place] coma scale verbal response: Orientated [place] coma scale motor response: Obey commands [place] coma scale total score: 15 Course Orders Ordered: ED Orders 11/10/21 14:22 CT cervical spine wo con Stat CT facial bones wo con Stat CT head/brain wo con Stat 11/10/21 14:43 BMP [Basic Metabolic Panel] Stat CBC Auto Diff [Complete Blood Count AUTO DIFF] Stat PTT [Partial Thromboplastin Time] Stat Prothrombin Time INR Stat Discontinued Medications Lidocaine/Prilocaine (Lidocaine/Prilocaine 5 Gm) 5 gm TOP NOW ONE Stop: 11/10/21 16:07 Last Admin: 11/10/21 16:52 Dose: 5 gm Documented by: TU Lidocaine/Sodium Bicarbonate (Lido 1%/Sod Bicarb 8.4% (10ml) 10 Ml Syringe) 10 ml INJ NOW ONE Stop: 11/10/21 16:07 Last Admin: 11/10/21 16:51 Dose: 10 ml Documented by: TU Morphine Sulfate (Morphine 4 Mg/Ml Inj) 4 mg IV NOW ONE Stop: 11/10/21 15:21 Last Admin: 11/10/21 15:26 Dose: 4 mg Documented by: TU Morphine Sulfate (Morphine 4 Mg/Ml Inj) 4 mg IV NOW ONE Stop: 11/10/21 18:12 Last Admin: 11/10/21 18:30 Dose: 4 mg Documented by: TU Ondansetron HCl (Ondansetron 4 Mg Odt) 4 mg SL NOW ONE Stop: 11/10/21 14:29 Last Admin: 11/10/21 14:34 Dose: 4 mg Documented by: TU Oxycodone/Acetaminophen (Oxycodone/Apap 5/325 Prepack) 1 bottle MISC SEEINSTR ONE Stop: 11/10/21 19:19 Reevaluation(s) Reevaluation #1: Reviewed patient's imaging, lab work. After evaluation plan for suture repair of patient's upper lip laceration and then will re-evaluate her inner oral laceration see if it needs repair as well. Vital Signs Vital signs: Vital Signs - 8 hr 11/10/21 14:15 11/10/21 15:41 11/10/21 15:43 Temperature 97.9 F Pulse Rate 83 76 84 Respiratory Rate 22 Blood Pressure 125/63 Pulse Oximetry 99 92 94 11/10/21 15:45 11/10/21 16:00 11/10/21 16:30 Temperature Pulse Rate 80 79 71 Respiratory Rate 14 Blood Pressure 129/60 125/66 Pulse Oximetry 92 92 92 11/10/21 16:31 11/10/21 17:00 11/10/21 17:30 Temperature Pulse Rate 73 78 76 Respiratory Rate Blood Pressure 106/50 L 103/53 L 109/57 L Pulse Oximetry 92 93 92 11/10/21 18:00 11/10/21 18:01 11/10/21 18:30 Temperature Pulse Rate 76 78 78 Respiratory Rate Blood Pressure 162/81 H 151/86 H Pulse Oximetry 94 94 92 11/10/21 19:00 11/10/21 19:01 Temperature Pulse Rate 81 82 Respiratory Rate Blood Pressure 143/93 H Pulse Oximetry 93 93 MDM - Fall Lab Data Result diagrams: 11/10/21 14:43 11/10/21 14:43 Labs: Lab Results 11/10/21 11/10/21 11/10/21 Range/Units 14:43 14:43 14:43 WBC 12.8 H (4.5-11.0) X10^3/uL RBC 4.23 (4.0-5.2) X10^6/uL Hgb 13.5 (12.0-16.0) g/dL Hct 40.8 (36-46) % MCV 96.6 (80-100) fL MCH 32.0 (26-34) PG MCHC 33.1 (30-36) % RDW 13.7 (11.6-14.8) % Plt Count 276 (150-400) X10^3/uL Neut % (Auto) 87.8 H (50-75) % Lymph % (Auto) 5.5 L (25-40) % [place] % (Auto) 5.4 (3-14) % Eos % (Auto) 1.0 L (2-4) % Baso % (Auto) 0.3 (0-2) % Neut # (Auto) 14624 H (6097-8790) /uL Lymph # (Auto) 700 L (6958-1179) /uL [place] # (Auto) 700 (0-900) /uL Eos # (Auto) 100 (0-450) /uL Baso # (Auto) 0 (0-100) /uL PT 15.4 H (10.1-12.7) SECONDS INR 1.4 H (0.9-1.3) APTT 72 H D (26.4-36.2) SECONDS Sodium 138 (137-145) mmol/L Potassium 4.6 (3.4-5.1) mmol/L Chloride 99 (98-107) mmol/L Carbon Dioxide 30 (22-32) mmol/L BUN 14 (7-17) mg/dL Creatinine 1.10 H (0.52-1.04) mg/dL Estimated GFR 47.8 L (>60) mL/min BUN/Creatinine Ratio 12.7 (6-22) Glucose 104 (80-110) mg/dL Calcium 9.5 (8.4-10.2) mg/dL Imaging Data CT scan - head: Radiologist's Impression: Mary Enriquez?(c)??81??F??1940 ? Allergy/Adv: No Known Drug Allergies (More??) Close Head CT (Signed) Brad Dyeric - 11/10/[address] (Signed) Brad Dyeric - 11/10/[address] (Signed) GomezJulio - 11/10/[address] (Signed) Grzegorz Hernándezbiancamichael - 03/28/21 Shoulder X-Ray (Signed) Farhat Guillen - 03/28/21 Telemetry Strips 01/20/21 Chest X-Ray (Signed) MelecioEran - 01/19/21 Shoulder X-Ray (Signed) Andrea Sandoval - 03/26/[address] (Signed) Edilson Desouza - 11/17/[address] (Signed) Edilson Desouza - 11/17/[address] (Signed) Edilson Desouza - 11/17/19 Ankle X-Ray (Signed) Enedelia Becerra - 11/17/19 Launch?[place] [address] CT Scan Report Signed Patient: Mary Enriquez MR#: [id number] : 1940 Acct:[id number] Age/Sex: 81 / F Date of Service: 11/10/21 Loc: ED Accession Number: [id number] ?? Procedure: CT head/brain wo con Ordering Provider: Melinda Kirkland D.O. PROCEDURE:? CT HEAD/BRAIN WO CON ? INDICATIONS:? trauma ? TECHNIQUE:? Noncontrast 4.5 mm thick angled axial sections acquired from the foramen magnum to the vertex, with coronal and sagittal reformats.? For radiation dose reduction, the following was used:? automated exposure control, adjustment of mA and/or kV according to patient size.? ? COMPARISON:? [facility], CT, CT HEAD/BRAIN WO CON, 03/28/2021, 16:37. ? FINDINGS:? Image quality:? Excellent.? ? CSF spaces:? Basal cisterns are patent.? No extra-axial fluid collections.? The ventricles are symmetric in size and shape.? ? Brain:? No intracranial bleeds or masses.? There is cerebral volume loss for age, with resultant ventricular and sulcal prominence.? There are moderate periventricular and deep white matter chronic small vessel ischemic changes.? There is intracranial internal carotid artery atherosclerosis.? ? Skull and face:? Calvarium and visualized facial bones appear intact, without suspicious lesions.? Chronic nasal bone deformity from remote fracture. ? Sinuses:? Visualized sinuses and mastoids are clear.? ? IMPRESSION:? ? 1. No evidence of acute intracranial process.? No evidence of significant intracranial sequelae of acute trauma. ? 2. Age-related volume loss and moderate small vessel ischemic change. ? 3. Chronic deformity of the nasal bone from remote fracture.? ? ? Dictated by: Julio Dyer M.D. on 11/10/2021 at 14:30 ? ? Approved by: Julio Dyer M.D. on 11/10/2021 at 14:31?? CT - cervical spine: Radiologist's Impression: [place] [address] CT Scan Report Signed Patient: Mary Enriquez MR#: [id number] : 1940 Acct:[id number] Age/Sex: 81 / F Date of Service: 11/10/21 Loc: ED Accession Number: [id number] ?? Procedure: CT cervical spine wo con Ordering Provider: Melinda Kirkland D.O. PROCEDURE:? CT CERVICAL SPINE WO CON ? INDICATIONS:? trauma ? TECHNIQUE:? Noncontrast 3 mm thick sections acquired from the skull base to the T4 level.? Sagittal and coronal reformats were then constructed.? For radiation dose reduction, the following was used:? automated exposure control, adjustment of mA and/or kV according to patient size.? ? COMPARISON:? [facility], CT, CT CERVICAL SPINE WO CON, 11/17/2019, 23:42. ? FINDINGS:? Image quality:? Excellent.? ? Bones:? No fractures or dislocations.? Visualized superior ribs are intact.? Severe cervical spondylitic change.? Multilevel facet arthropathy.? Mild degenerative anterolisthesis of C4 on C5.? Multilevel uncovertebral joint osteophytes, spanning from C4-C5 through C6-C7 results in multilevel bony foraminal narrowing. ? Soft tissues:? Prevertebral soft tissues are normal in thickness.? No paravertebral hematomas.? No apical pneumothoraces.? There is a severe calcified left carotid bifurcations stenosis, in which the calcified plaque likely results in a stenosis of 70% or greater. ? ? IMPRESSION:? ? 1. No evidence of acute cervical fracture or dislocation. ? 2. Severe cervical spondylitic change with multilevel bony foraminal narrowing. ? 3. Incidental note made of severe calcified left carotid bifurcation region stenosis. ? Dictated by: Julio Dyer M.D. on 11/10/2021 at 14:05 ? ? Approved by: Julio Dyer M.D. on 11/10/2021 at 14:11?? CT facial bones: Radiologist's Impression: [address] [address] [address] Scan Report Signed Patient: Mary Enriquez MR#: [id number] : 1940 Acct:[id number] Age/Sex: 81 / F Date of Service: 11/10/21 Loc: ED Accession Number: [id number] ?? Procedure: CT facial bones wo con Ordering Provider: Melinda Kirkland D.O. PROCEDURE:? CT FACIAL BONES WO CON ? INDICATIONS:? trauma ? TECHNIQUE:? Noncontrast 2.5 mm thick axial images acquired from the mandible through the frontal sinuses, with coronal and sagittal reformatting.? For radiation dose reduction, the following was used:? automated exposure control, adjustment of mA and/or kV according to patient size.? ? COMPARISON:? [facility], CT, CT FACIAL BONES WO CON, 11/17/2019, 23:42. ? FINDINGS:? Image quality:? Excellent.? ? Bones and teeth:? Orbital raymundo are intact.? Sinus raymundo show no fracture or deformity.? Chronic nasal bone fracture, unchanged from the previous study.? No nasal septal fracture.? No mandibular fractures or subluxation.? Poor dentition.? No upper teeth.? Multiple lower broken teeth and periapical lucencies.? Zygomatic arches are intact.? Pterygoid plates are intact.? Visualized portions of the skull base and auditory canals are intact.? ? Sinuses:? Paranasal sinuses are aerated, without fluid levels, mucosal thickening, or mucoceles.? Mastoid air cells are aerated.? ? Soft tissues:? No edema, masses, or fluid collections.? No enlarged lymph nodes.? No soft tissue lacerations or debris.? 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 There is also a calcified proximal right internal carotid artery stenosis, which is less than 50% by calcification. ? Vascular:? Visualized vascular structures appear normal in the absence of contrast.? Bony vascular foramina and canals are intact.? ? IMPRESSION:? ? 1. The patient has a chronic nasal bone fracture. ? 2. No evidence of acute displaced facial bone fracture or mandibular fracture. ? 3. 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 There is also a right proximal internal carotid artery stenosis.? ? ? Dictated by: Julio Dyer M.D. on 11/10/2021 at 14:25 ? ? Approved by: Julio Dyer M.D. on 11/10/2021 at 14:29?? MDM Narrative Medical decision making narrative: This is an 81-year-old female with fall into a countertop causing a external facial laceration as well as intraoral laceration that was through and through. Laceration was repaired externally and has good closure appears that will heal well internally. Patient has 2 small puncture wounds that do not require repair at this time. Patient did break her dentures, she also has a fracture of 1 of the 2 teeth that she has present in her mouth currently. Patient's head CT, C- spine and facial bones show no acute changes. It is noted patient has what appear to be chronic fracture of the nasal bones which patient is aware and confirms. Are otherwise reassuring, patient has had at her mouth but no other injuries that she appreciates. Is 1.4 she is anticoagulated for atrial fibrillation which necessitated head CT. Patient tolerated procedure well. Discharge home with additional pain medication in place of her typical pain medication. Referral given to a dentist as she does not have one currently. All questions answered. Return precautions discussed. Discharge Plan Departure Patient Disposition: Home Clinical Impression: Fracture of tooth (traumatic), initial encounter for closed fracture Laceration of face Qualifiers: Encounter type: initial encounter Qualified Code(s): S01.81XA - Laceration without foreign body of other part of head, initial encounter Puncture wound of face Qualifiers: Encounter type: initial encounter Qualified Code(s): S01.83XA - Puncture wound without foreign body of other part of head, initial encounter Intraoral laceration Qualifiers: Encounter type: initial encounter Qualified Code(s): S01.512A - Laceration without foreign body of oral cavity, initial encounter Instructions: DI for Laceration Repair -- Simple Activity Restrictions/Additional Instructions: You have a laceration of your outer lip which has been repaired, the inner laceration should heal over the next 5-7 days. You have an old fracture to your nasal bones but no new facial bone fractures. The tooth that is fractured will need to be followed with a dentist. Included is referral to OM but a general dentist may be adequate. You may have a soft diet, cold or cold foods may be preferential, avoid chewy, foods with sharp edges or corners, very spicy food. Make sure to rinse your mouth afterwards with cool water. You may take Tylenol up to a 1000 mg every 8 hours as needed for pain. You may also take oxycodone 1-2 tablets every 6 hours as needed. This medication can make you sleepy do not drive, perform hazardous activities or make any major decisions while taking it. This medication will make you constipated please take a stool softener once to twice daily until stools are soft and regular. Pres[facility] in [place]. Wound Care: Keep wound(s) clean and dry. Wash daily with soap and water only. Do not use over the counter products (alcohol or peroxide)on the wounds unless instructed by a physician. If wound condition worsens (increased/expanding redness, developing fluid blisters, or worsening pain), either contact your doctor for an urgent re- assessment , or return to the Emergency Department. Return to the Emergency Department for any new or worsening symptoms. Return to the ED, urgent care, or vist a primary care doctor for removal or suture or jonathan if your sutures have not absorbed by 7 days. Return if fever greater than 100.4 Fahrenheit, increased swelling, increasing pain or worsening symptoms such as increased discharge or spreading redness. Severe headaches, persistent vomiting, lightheadedness or passing out, new chest pain or shortness of breath, numbness, tingling or weakness, new neck or back pain or other new or concerning symptoms. Prescriptions: New oxycodone 5 mg tablet 5 mg PO Q6H PRN (Reason: pain) Qty: 14 0RF No Action warfarin 2.5 mg tablet 2.5 mg PO DAILY 0RF Label Comments: Take 1 tablet by mouth once a day, except for Thursday takes 1/2 tab hydrocodone-acetaminophen 10-325 mg tablet 1 tab PO Q12H PRN (Reason: Pain, Moderate) 0RF Label Comments: TK 1 T PO Q 12 H PRF MODERATE PAIN levothyroxine 25 mcg tablet 25 mcg PO DAILY 0RF gabapentin 300 mg capsule 300 mg PO BID 0RF metoprolol succinate 25 mg tablet extended release 24 hr 50 mg PO BID 0RF Label Comments: TK 1 T PO QD duloxetine 30 mg capsule,delayed release(DR/EC) 30 mg PO DAILY 0RF Label Comments: TK ONE C PO QD IN ADDITION TO 60 MG D Rx Instructions: take in addition to 60mg daily duloxetine 60 mg capsule,delayed release(DR/EC) 60 mg PO DAILY 0RF Label Comments: TK 1 C PO DAILY IN ADDITION TO 30 MG D Rx Instructions: take in addition to 30 mg daily atorvastatin 40 mg Tablet 40 mg PO DAILY 0RF furosemide 20 mg Tablet 20 mg PO DAILY 0RF cholecalciferol (vitamin D3) 25 mcg (1,000 unit) Capsule 25 mcg PO DAILY 0RF xodnnqbiuznz-fnbqmlfd-jupczw Tablet 1 tab PO DAILY 0RF vitamin B complex-folic acid 0.4 mg Tablet 1 tab PO DAILY 0RF tizanidine 4 mg Capsule 4 mg PO BEDTIME PRN (Reason: Muscle Spasm) 0RF Referrals: Keshav Bryant MD [Primary Care Provider] - Lavelle Alfaro DMD [Physician] -
[2021-11-10] MEDS: LIDO 1%/SOD BICARB 8.4% (10ML) 10 ML SYRINGE INJ (16:51)
[2021-11-10] MEDS: LIDOCAINE/PRILOCAINE 5 GM TOP (16:52)
--- NOTE | 2021-11-10 19:30 | PC.NURSE ---
inserted prior to receiving pt at 1900
== END 2021-11-10 19:32 | disposition home or self-care (01) ==
PROVIDERS: Emergency Provider Emergency Medicine; Family Provider Internal Medicine; PCP Internal Medicine
DX: S02.5XXA Fracture of tooth (traumatic), initial encounter for closed fracture (principal); S01.511A Laceration without foreign body of lip, initial encounter; Z79.01 Long term (current) use of anticoagulants; Z87.891 Personal history of nicotine dependence; W18.09XA Striking against other object with subsequent fall, initial encounter; Y92.89 Other specified places as the place of occurrence of the external cause
CPT/HCPCS: 12011; 70450; 70486; 72125; 80048; 85025; 85610; 85730; 96374; 96376; 99284; J2270

== ENCOUNTER 2022-06-04 03:26 | Emergency (ER) | payer OTHER, SELFPAY ==
[2021-01-20 03:19] VITALS: BMI 39.6
[2022-06-04] VITALS (7 sets, daily range): BP systolic 112–130; BP diastolic 64–74; PULSE 68–88; RESP 20; TEMP 36.9; O2SAT 88–93; BMI 40.3
--- NOTE | 2022-06-04 03:34 | DI.RAD.S_ITS ---
PROCEDURE: XR SHOULDER RT MIN 2V INDICATIONS: fall with shoulder pain TECHNIQUE: 3 views of the shoulder were acquired. COMPARISON: [facility], CR, XR SHOULDER RT MIN 2V, 03/28/2021, 16:31. FINDINGS: Bones: No fractures or dislocations. Moderate acromioclavicular joint and glenohumeral joint osteoarthritic changes are noted with joint space narrowing, subchondral sclerosis and marginal osteophyte formation. Well corticated fragment superior to acromioclavicular joint is seen unchanged from prior study and likely represent old healed injury. No suspicious bony lesions. Visualized ribs appear intact. Soft tissues: No suspicious soft tissue calcifications. IMPRESSION: No acute shoulder fracture or dislocation. Likely old healed injury involving right acromioclavicular joint. Moderate acromioclavicular joint and glenohumeral joint osteoarthritis. No gross soft tissue abnormalities. Dictated by: Mo Reynolds M.D. on 06/04/2022 at 9:47 Approved by: Mo Reynolsd M.D. on 06/04/2022 at 9:48
--- NOTE | 2022-06-04 03:38 | ED_ITS ---
HPI - Extremity Injury (Upper) General Chief Complaint: Fall Stated Complaint: Fall- shoulder pain Time Seen by Provider: 06/04/22 03:29 History of Present Illness HPI narrative: 82-year-old female former smoker with history of hyperlipidemia, hypothyroid, AFib on anticoagulation presents by EMS for evaluation of a right shoulder injury suffered as a consequence of a ground level fall just prior to arrival. She denies any head, neck or back pain. She states that she was in her normal state of health and denies any prodromal symptoms such as dizziness, weakness or lightheadedness. She had fallen asleep in her recliner and woke up and was attempting to get herself to bed when she was pushing herself up out of the chair in her arm slipped and she fell from standing onto her right shoulder. She now has pain with range of motion and palpation but denies any numbness, tingling or weakness. She denies any elbow or wrist pain and denies any lower extremity injuries. Related Data Home Medications Medication Instructions Recorded Confirmed duloxetine 30 mg capsule,delayed 30 mg PO DAILY 12/01/19 01/20/21 release duloxetine 60 mg capsule,delayed 60 mg PO DAILY 12/01/19 01/20/21 release gabapentin 300 mg capsule 300 mg PO BID 12/01/19 01/20/21 hydrocodone 10 mg-acetaminophen 1 tab PO Q12H PRN Pain, Moderate 12/01/19 01/20/21 325 mg tablet levothyroxine 25 mcg tablet 25 mcg PO DAILY 12/01/19 01/20/21 metoprolol succinate 25 mg 50 mg PO BID 12/01/19 01/20/21 tablet,extended release 24 hr warfarin 2.5 mg tablet 2.5 mg PO DAILY 12/01/19 01/20/21 atorvastatin 40 mg tablet 40 mg PO DAILY 01/19/21 01/19/21 cholecalciferol (vitamin D3) 25 25 mcg PO DAILY 01/19/21 01/19/21 mcg (1,000 unit) capsule furosemide 20 mg tablet 20 mg PO DAILY 01/19/21 01/20/21 [id number]-owaertnt-tizbgh tablet 1 tab PO DAILY 01/19/21 01/20/21 tizanidine 4 mg capsule 4 mg PO BEDTIME PRN Muscle Spasm 01/19/21 01/20/21 vitamin B complex-folic acid 0.4 1 tab PO DAILY 01/19/21 01/20/21 mg tablet Previous Rx's Medication Instructions Recorded oxycodone 5 mg tablet 5 mg PO Q6H PRN pain #14 tabs 11/10/21 Allergies Allergy/AdvReac Type Severity Reaction Status Date / Time No Known Drug Allergies Allergy Verified 12/01/19 10:10 Review of Systems Review of Systems Narrative: GENERAL: Denies chills, fatigue, malaise, fever, sweats. HEENT: Denies sinus pain, ear pain, sore throat, difficulty swallowing, dizzines s. RESPIRATORY: Denies dyspnea, cough, wheezing, hemoptysis, sputum. CARDIOVASCULAR: Denies chest pain, palpitations, orthopnea, edema, GASTROINTESTINAL: Denies nausea, vomiting, abdominal pain, diarrhea, constipation, melena. : Denies dysuria, frequency, incontinence, hematuria, urinary retention. MUSCULOSKELETAL: See HPI SKIN: Denies rash, skin lesions, or other NEUROLOGIC: Denies weakness, headache, numbness, change in speech, confusion, seizures, incoordination. PSYCHIATRIC: No concerning psychosocial issues. 12 point review of systems is negative except for those stated above Patient History Medical History Afib Depression Hyperlipidemia Hypothyroidism (acquired) Restless leg syndrome Sleep apnea Surgical History History of bilateral hip arthroplasty History of open reduction and internal fixation (ORIF) procedure History of tonsillectomy Hx of cholecystectomy S/P appendectomy Status post bilateral knee replacements Family History Mother Cancer Leukemia Breast cancer Cataracts, bilateral Father Aortic aneurysm rupture Son Diabetes mellitus Liver cancer Social History household members: none Smoking Status: Former smoker alcohol intake: current Smoking Status: Former smoker alcohol intake frequency: a few times a week Substance Use Type: marijuana Exam Narrative Exam Narrative: GENERAL: [82] year old patient appears stated age. Well-developed patient, in mild distress. GCS 15 HEAD: Atraumatic. Normocephalic. EYES: Pupils equal round and reactive. Extraocular motions intact. No scleral icterus. No injection or drainage. ENT: Nose without bleeding, purulent drainage. Throat without erythema, tonsillar hypertrophy or exudate. Airway patent. NECK: Trachea midline. Non tender CARDIOVASCULAR: Regular rate and rhythm without murmurs, gallops, or rubs. RESPIRATORY: Clear to auscultation. Breath sounds equal bilaterally. No wheezes, rales, or rhonchi. GASTROINTESTINAL: Abdomen soft, non-tender, nondistended. EXTREMITIES: Decreased range of motion of right shoulder secondary to pain, no obvious deformity, no numbness, tingling or weakness, no pain in elbow or wrist. BACK: Nontender without deformity or crepitance. No flank tenderness. NEURO: AOx3. SKIN: No rash or erythema of visible areas Initial Vital Signs Initial Vital Signs: Vital Signs Temperature 98.4 F 06/04/22 03:34 Pulse Rate 75 06/04/22 03:34 Respiratory Rate 20 06/04/22 03:34 Blood Pressure 130/74 06/04/22 03:34 Pulse Oximetry 93 06/04/22 03:34 Oxygen Delivery Method 06/04/22 03:34 Procedures Orthopedic Splinting/Casting Injury #1: Side: right Upper Extremity Injury Location: shoulder Upper Extremity Immobilizer: sling/shoulder immobilizer Post splinting neuro exam: intact Post splinting vascular exam: intact Placed by: Nursing Course Orders Ordered: ED Orders 06/04/22 03:34 XR shoulder RT min 2V Stat Discontinued Medications Hydrocodone Bitart/Acetaminophen (Hydrocodone/Acet 5/325 Tablet) 1 tab PO NOW ONE Stop: 06/04/22 04:43 Last Admin: 06/04/22 05:03 Dose: 1 tab Documented By: DANIELA Vital Signs Vital signs: Vital Signs - 8 hr 06/04/22 03:34 06/04/22 03:45 06/04/22 03:55 Temperature 98.4 F Pulse Rate 75 73 76 Respiratory Rate 20 Blood Pressure 130/74 Pulse Oximetry 93 90 L 90 L Oxygen Delivery Method Room Air 06/04/22 03:55 06/04/22 04:00 06/04/22 04:00 Temperature Pulse Rate 68 Respiratory Rate Blood Pressure 116/72 113/70 Pulse Oximetry 88 L Oxygen Delivery Method 06/04/22 04:30 06/04/22 04:30 06/04/22 05:00 Temperature Pulse Rate 70 88 Respiratory Rate Blood Pressure 123/71 Pulse Oximetry 89 L 91 Oxygen Delivery Method 06/04/22 05:01 06/04/22 05:01 Temperature Pulse Rate 78 Respiratory Rate Blood Pressure 112/64 Pulse Oximetry 91 Oxygen Delivery Method MDM - Extremity Injury (Upper) Imaging Data Extremity x-ray #1: Radiologist's Impression: No fracture or dislocation Discharge Plan Departure Patient Disposition: Home Clinical Impression: Acute shoulder pain Instructions: How to Prevent Falls Activity Restrictions/Additional Instructions: *You have been diagnosed with [acute right shoulder injury. As we discussed your history and physical exam are reassuring and x-ray is negative for fracture or dislocation] *What to do: *Please continue to take your regular medications as directed. *Please follow up with your primary care provider in 2-3 days, call for an appointment. Let them know you were seen in the Emergency Department and that we ask that you be seen in follow up. We will electronically transmit a record of today's note if your PCP is in our system *Return to Emergency Department if you should have any new, worsening or concerning symptoms, such as [fever greater than 101 F, shaking chills, worsening pain, persistent vomiting or other bothersome symptoms] Prescriptions: No Action warfarin 2.5 mg tablet 2.5 mg PO DAILY Label Comments: Take 1 tablet by mouth once a day, except for Thursday takes 1/2 tab hydrocodone-acetaminophen 10-325 mg tablet 1 tab PO Q12H PRN (Reason: Pain, Moderate) Label Comments: TK 1 T PO Q 12 H PRF MODERATE PAIN levothyroxine 25 mcg tablet 25 mcg PO DAILY gabapentin 300 mg capsule 300 mg PO BID metoprolol succinate 25 mg tablet extended release 24 hr 50 mg PO BID Label Comments: TK 1 T PO QD duloxetine 30 mg capsule,delayed release(DR/EC) 30 mg PO DAILY Label Comments: TK ONE C PO QD IN ADDITION TO 60 MG D Rx Instructions: take in addition to 60mg daily duloxetine 60 mg capsule,delayed release(DR/EC) 60 mg PO DAILY Label Comments: TK 1 C PO DAILY IN ADDITION TO 30 MG D Rx Instructions: take in addition to 30 mg daily atorvastatin 40 mg Tablet 40 mg PO DAILY furosemide 20 mg Tablet 20 mg PO DAILY cholecalciferol (vitamin D3) 25 mcg (1,000 unit) Capsule 25 mcg PO DAILY [id number] Tablet 1 tab PO DAILY vitamin B complex-folic acid 0.4 mg Tablet 1 tab PO DAILY tizanidine 4 mg Capsule 4 mg PO BEDTIME PRN (Reason: Muscle Spasm) oxycodone 5 mg tablet 5 mg PO Q6H PRN (Reason: pain) Qty: 14 0RF Referrals: Keshav Bryant MD [Primary Care Provider] - Visit Report Forms: Patient Portal/API
[2022-06-04] MEDS: HYDROCODONE/ACET 5/325 TABLET 1 TAB PO (05:03)
== END 2022-06-04 05:26 | disposition home or self-care (01) ==
PROVIDERS: Emergency Provider Emergency Medicine; Family Provider Internal Medicine; PCP Internal Medicine
DX: S49.91XA Unspecified injury of right shoulder and upper arm, initial encounter (principal); M25.511 Pain in right shoulder; W19.XXXA Unspecified fall, initial encounter
CPT/HCPCS: 73030; 99283